=== PATIENT | male | born 1980 | race Caucasian/White ===

== ENCOUNTER 2016-07-02 23:44 | Inpatient (IN) | payer MEDICAID, OTHER ==
[~2016-07-02] VITALS: Ht 172.7 cm; Wt 80.9 kg
[~2016-07-02 23:44] MED LIST: DOXY100C43 PO; DULO60CA61 PO; LITH300T2 PO
[2016-07-02 23:53] VITALS: BP 158/69; PULSE 111; RESP 18; O2SAT 96
[2016-07-03] VITALS (12 sets, daily range): BP systolic 116–148; BP diastolic 58–80; PULSE 63–99; RESP 12–20; O2SAT 95–100
[2016-07-03] MEDS ORDERED: Ammonia Aromatic Inhalant Ampule INHALATION ONE (00:25)
--- NOTE | 2016-07-03 00:28 | ED.REPORT ---
HPI-Altered Mental Status Date of Service Jul 03, 2016 ED Provider: Wu Cuevas MD Patient is a 35 year old male with a history of polysubstance abuse, rhabdomyolysis due to methamphetamine abuse, and muscular dystrophy who was found to be acutely psychotic this evening presents via EMS sedated with respiratory depression after he was given 10mg Versed by EMS enroute. Patient was apparently dropped off by friends on the side of the road this evening and wandered to a nearby house. This was presumed be high on methamphetamine, as he was acutely psychotic. A police deputy arrived at the scene and was able to calm the patient down. However he escalated while being transported to the ED, refusing all care and becoming agitated. He was given 10mg IV Versed. The patient subsequently became sedated and stopped breathing for 10s enroute. However he awoke due to large bumps in the road. Patient arrives to the ED snoring and is unable to provide history. Nursing Notes Stated Complaint: DELIRIUM Chief Complaint: Substance Abuse Nursing Notes Reviewed: Yes Allergies: Coded Allergies: No Known Allergies (Verified Allergy, Unknown, 07/02/16) Scheduled Doxycycline Monohyd (Doxycycline Monohyd) 100 Mg Capsule 100 MG PO BID Duloxetine (Duloxetine) 60 Mg Capsule.dr 60 MG PO HS Wesson Carbonate (Wesson Carbonate) 300 Mg Tablet 300 MG PO DAILY General Time Seen by MD: 23:54 Chief Complaint Agitated Hx Obtained From: EMS Unable to Obtain Hx: Patient condition Arrived By: Ambulance Sudden in Onset?: No Onset Occurred: 1 - 4 hours ago Symptom Duration: Since onset Recent Healthcare: No recent doctor visit, No recent hospitalization Similar Sx Previous: Yes Past Medical History Past Medical History polysubstance abuse - methamphetamine ADHD Uccmxfk-Nyhhk-Mpjjk disease admitted 05/2013 for: Severe hyperthermia, Rhabdomyolysis, Community-acquired pneumonia, and Acute renal failure sepsis due to left lower extremity cellulitis - pt left hospital AMA Past Surgical History Reports: Appendectomy Smoking History Current Every Day Smoker Social History Alcohol Use: Denies alcohol use Drug Use: Cocaine, IV drugs, Meth, THC, Other Other Social History: Local resident Occupation staying with [employer] till 04/06/2015 Ambulatory Status Independent Review of Systems Unable to Obtain ROS Patient condition Physical Exam Initial Vital Signs Vital Signs (First) Date Time Temp Pulse Resp B/P Pulse Ox O2 Delivery O2 Flow Rate FiO2 07/02/16 23:53 37.4 111 18 158/69 96 Room Air 07/03/16 00:00 3 Initial VS: Reviewed, Vital signs abnormal Alertness: Positive: Sedated Distress / Hydration: Positive: Dehydration severe Head / Eyes: Atraumatic, Normocephalic, PERRL (at midposition, small but not pinpoint) Neck: Atraumatic, Supple, No swelling Respiratory / Chest: No rales, No rhonchi, No wheezing Trouble maintaining airway, snoring respirations that respond to head tilt and jaw thrust. Cardiovascular: Regular rhythm, Heart sounds NL Heart Rate / Rhythm: Positive: Tachycardia Mental Status: Positive: Pharmacologically sedated ENT: Airway patent (but has trouble maintaining airway) Abdomen: Soft, Non-tender (not reactive) Skin: Warm, Dry Rash / Lesion Pattern: Negative: Track disla Upper Extremity / MS: Atraumatic, No swelling, No erythema no evidence of cellulitis Lower Extremity / Pelvis / MS: Atraumatic, No swelling, No erythema charcot foot no evidence of cellulitis Interpretation & Diagnostics Interpretation & Diagnostics: Urine Tox Dip: Positive for benzodiazepines, marijuana, methamphetamine, opiates, TCAs, Ecstasy, Amphetamines. Lab Results Interpretation Result Diagram: 07/03/16 0050 07/03/16 0050 Test 07/03/16 00:15 07/03/16 00:50 Urine Color Dark yellow (YELLOW) Urine Appearance Clear (CLEAR,HAZY) Urine pH 6.0 (5.0-8.0) Urine Specific [place] 1.035 (1.003-1.035) Urine Protein 100mg/dL (NEG,TRACE) Urine Glucose (UA) Negativemg/dL (NEGATIVE) Urine Ketones 15mg/dL (NEGATIVE) Urine Occult Blood Large (NEGATIVE) Urine Nitrite Negative (NEGATIVE) Urine Bilirubin Negative (NEGATIVE) Urine Urobilinogen 1.0mg/dL (NORMAL) Urine Leukocyte Esterase Negative (NEGATIVE) Urine RBC 0-2/hpf (0-2) Urine WBC 0-5/hpf (0-5) Urine Epithelial Cells Few/hpf (NONE-MOD) Urine Crystals None seen (NONE SEEN) Urine Bacteria Few/hpf (NONE-FEW) Urine Hyaline Casts 5/20/lpf (NONE) Urine Granular Casts Occasional (NONE SEEN) Urine Waxy Casts None seen (NONE SEEN) Urine Red Blood Cell Casts None seen (NONE SEEN) Urine White Blood Cell Casts None seen (NONE SEEN) Urine Mucus Present (None Seen) Urine Trichomonas None seen (NONE SEEN) Urine Yeast None (NONE SEEN) Urinalysis Comment None Urine Culture Reflexed Not indicated Hold Urine Received (Received) Urine Opiates Screen Positive Urine Methadone Screen Negative Urine Barbiturates Screen Negative Urine Amphetamines Screen Positive Urine Benzodiazepines Screen Positive Urine Cocaine Metabolite Screen Negative Urine Cannabinoids Screen Positive Hold Edward Top Tube Received (Received) Lab Results Interpretation: Markedly elevated CPK Re-Eval/Medical Decision Med Decision/Clinical Course 35-year-old male who uses IV methamphetamine and other drugs. Tonight he became very agitated and required parenteral sedation by the paramedics. He received Versed 10 mg IV. He was quite sedated when he arrived here with periodic apnea lasting up to 30 seconds. He had O2 saturation drops into the high 80s. He required a nasal trumpet airway, oral airway and the jaw thrust maneuver. He remained sedated with obstructive apnea and we were preparing to intubate him when he became more arousable. At times he was alert enough to actually answer questions, at other times he was sedated and apneic. The apnea was overcome with airway positioning and stimulation. Drug screen showed multiple substances to include opiates and amphetamines. He was given Narcan 0.4 mg with more clearing. His labs showed rhabdomyolysis with a CPK level of 11,000. Case was discussed with Dr. Mcmillan the patient will be admitted to her service. She requested that an head CT scan be done, but the patient remained agitated and had constant movement of his extremities so was not possible to shoot the scan. We will attempt to soothe the scan later in a couple hours. It would seem unwise to give him further sedating medications at this time. Source of Hx: Old records Re-Evaluation/Progress #1: Time of Eval: 00:05 Re-Evaluation/Progress Note: Rechecked the patient. He continues to breath during nasal trumpet. Re-Evaluation/Progress #2: Time of Eval: 00:15 Re-Evaluation/Progress Note: Patient stopped breathing again briefly. However this episode was only brief. Re-Evaluation/Progress #3: Time of Eval: 00:20 Re-Evaluation/Progress Note: Patient is now awake in the ED. Remains sedated. Re-Evaluation/Progress #4: Time of Eval: 02:00 Re-Evaluation/Progress Note: Patient is sleeping and remains stable. Re-Evaluation/Progress #5: Time of Eval: 02:36 Re-Evaluation/Progress Note: Patient was given Narcan, since he still remains sedated. The patient is now awake and distressed. Consultation : Referral / Consult Name: Maria D Mcmillan DO Consulted With: Hospitalist Call Returned at: 03:06 Extrusion Line Operator: Will see patient, Agrees with eval, Agrees with plan, Accepts admit Note: Spoke with Dr. Mcmillan, hospitalist, who agrees to accept admit. Counseled Regarding: Diagnosis, Lab results, Need for admission Patient Discharge & Departure Impression: Primary Impression: Rhabdomyolysis Rhabdomyolysis type: non-traumatic Qualified Code: M62.82 - Rhabdomyolysis Additional Impressions: Methamphetamine abuse Heroin abuse Elevated creatine kinase Disposition: ADMITTED TO HOSPITAL Discharge Condition All VS Reviewed: Yes Condition: Stable Crit Care Except Billable Proc Time Spent: 30-74 minutes Services Performed: Patient management by me, Time spent at bedside, Reviewing test results, Reviewing imaging, Discussing patient care, Documentation in record, Time with fam/surrogate Critical Care Notes: Apneic patient requiring airway monitoring and multiple adjunctive airway devices. Polydrug overdose. Scribe Attestation Portions of this note were transcribed by Celi Howe. I, Dr. Cuevas personally performed the history, physical exam and medical decision-making; I reviewed and confirmed the accuracy of the information in the transcribed note. Signed by: Senthil Burns, 07/03/2016 0320 Wu Cuevas MD Jul 03, 2016 00:28 Celi Howe Jul 03, 2016 00:35
[2016-07-03] MEDS ORDERED: 0.9% Sodium Chloride 1,000 ML IV ONE ×2 (00:29→02:25)
[2016-07-03 00:59] LABS: BASOPHILS % (AUTO) 0.4 % (0-3); EOSINOPHILS % (AUTO) 1.4 % (0-5); Mean Corpuscular Hemoglobin 30.2 pg (27.0-35.0); Mean Corpuscular Volume 84.4 fL (81-100); NEUTROPHILS % (AUTO) 75.1 % (40-74); Platelet Count 298 bil/L (150-400)
[2016-07-03] MEDS ORDERED: Sodium Bicarb 8.4% Inj 150 MEQ in Dextrose 5% 1,000 ML IV ONE (03:00)
[2016-07-03] MEDS ORDERED: 0.9% Sodium Chloride 1,000 ML IV SCH (03:31)
[2016-07-03] MEDS ORDERED: Polyethylene Glycol (PEG) 17 Gm Powder PO PRN (03:35)
[2016-07-03] MEDS ORDERED: Ondansetron 2 mg/mL 2 mL Inj IVPUSH PRN (03:35)
[2016-07-03] MEDS ORDERED: Alum-Mag Hydrox-Simeth 30 mL Suspension PO PRN (03:35)
[2016-07-03 03:48] LABS: APPEARANCE,URINE CLEAR (CLEAR,HAZY); COLOR,URINE DARK YELLOW (YELLOW); OCCULT BLOOD,URINE LARGE (NEGATIVE)
[2016-07-03 04:08] LABS: BASOPHILS % (AUTO) 0.5 % (0-3); EOSINOPHILS % (AUTO) 0.9 % (0-5); MONOCYTES % (AUTO) 9.9 % (4-12); Mean Corpuscular Hemoglobin 30.4 pg (27.0-35.0); Mean Corpuscular Volume 85.3 fL (81-100); Platelet Count 278 bil/L (150-400)
--- NOTE | 2016-07-03 05:12 | NUR ---
Admit Pt arrived on unit at apprx 0415 from ED via stretcher with all personal belongings. VSS. Unable to transfer self to bed. Pt poor historian, unable to complete full pt history or med req. Pt refused to allow RN to look at groin or buttocks for skin check. Bed locked, low position. Call light within reach. 1:1 Sitter at bedside. Continuing to monitor.
--- NOTE | 2016-07-03 05:37 | PCM.HPMED ---
Subjective Date of Service Jul 03, 2016 Primary Provider: Admitting Physician: Maria D Mcmillan DO Primary Care Physician: Minda Attending Physician: Maria D Mcmillan DO Admit Status: From the Emergency Department Chief Complaint: altered mental status History of Present Illness: Mr. Aguilar is a 35 y/o man with history of polysubstance abuse, hepatitis C, rhabdomyolysis, leg cellulitis, and Charcot Chula Tooth disease who presented to the emergency department via EMS for acute psychosis. He was dropped off on the side of the road by friends and wandered to a nearby house. There he was found to be acutely psychotic. In route to the hospital, he was given 10 mg IV Versed, which caused the patient to be sedated and stopped breathing for 10 seconds. He awoke due to large bumps in the road. In the emergency department, patient arrived to the ED snoring and was unable to provide history. Urine Tox Dip: Positive for benzodiazepines, marijuana, methamphetamine, opiates, TCAs, Ecstasy, Amphetamines. Patient was given Narcan , since he still remained sedated. The patient was then awake and distressed. He was given 3 L of fluids and sodium bicarbonate. CT scan brain without contrast was ordered. Majority of history obtained from medical records due to patient's mental status. Upon assessment in the ED, he was sleeping but awoke to verbal stimuli. He answered a few questions then intermittently fell back asleep and thrashed in the bed. He knows that he is in a hospital and his name. He reports that he was at a friend's house earlier today. He has not been feeling sick recently. When asked if he took any drugs today, patient did not answer. Review of Systems: Complete review of systems limited due to patient's mental status. Allergies Coded Allergies: No Known Allergies (Verified Allergy, Unknown, 07/02/16) Home Medications Live Aguilar. [id number] 1980 07/27/2015 12:00 PM 03/09 Medications (active prior to today) Medication Name Directions duloxetine 20 mg capsule,delayed release take 1 capsule by oral route 2 times every day gabapentin 300 mg capsule take 1 capsule by oral route 3 times every day Multiple Vitamins tablet take 1 tablet by oral route every day with food neomycin 3.5 mg/g-polymyxin B 10,000 unit/g-dexameth 0.1 % eye oint apply in wound twice a day oxycodone 10 mg tablet take 1 tablet by oral route 6 times every day No more recent medication list available due to patient's mental status. PMH Polysubstance abuse - methamphetamine ADHD Xduriec-Lypzv-Qqjax disease Admitted 05/2013 for: Severe hyperthermia, Rhabdomyolysis, Community-acquired pneumonia, and Acute renal failure Sepsis due to left lower extremity cellulitis - pt left hospital AMA Surgical History Appendectomy Family History Father and brother with Charcot Chula Tooth Social History Hx Alcohol Use: Yes (Distant hx alcoholism) Hx Substance Use: Yes (hx cocaine, meth, heroin) Hx Tobacco Use: Yes Smoking Status: Current Every Day Smoker Exam Vital Signs Vital Sign - Last Date Time Temp Pulse Resp B/P Pulse Ox O2 Delivery O2 Flow Rate FiO2 07/03/16 03:23 95 18 148/70 97 Room Air 07/03/16 01:42 3 07/02/16 23:53 37.4 Intake and Output 07/02/16 07/02/16 07/03/16 Cumulative From/Thru 15:00 23:00 07:00 07/02/16 23:53 - 07/03/16 02:40 Intake Total 2000 ml 2000 ml Balance 2000 ml 2000 ml Intake IV Total 2000 ml 2000 ml Exam General: Thrashing periodically in bed, well-developed, well-nourished HEENT: Normocephalic, atraumatic. External ears without defect. Erythematous sclerae, moist conjunctivae. Dry lips with scabs present on upper and lower lips. Neck: Full range of motion Cardiovascular: Regular rate and rhythm with no murmurs, rubs, or gallops appreciated Pulmonary: Fine rhonchi upper airway but otherwise, clear to auscultation bilaterally with no crackles, wheezes, or rhonchi. Normal respiratory effort with no use of accessory muscles. Abdomen: Bowel tones present. Soft, nontender, nondistended. No hepatosplenomegaly or masses appreciated. Extremities: Charcot foot bilaterally without clubbing, cyanosis, or edema appreciated. Skin: Normal temperature, turgor, and texture; no rash or ulcers appreciated. Neurological: He responds to verbal stimuli. Normal muscle strength, tone, and bulk.Patient moves all 4 extremities equally. He is able to follow commands. Psychiatric: Mild distress. Drowsy and oriented to person and place. Lab and Diagnostics Result Diagram: 07/03/164907/03/1649 Assessment & Plan Mr. Aguilar is a 35 y/o man with history of polysubstance abuse, hepatitis C, rhabdomyolysis, leg cellulitis, and Charcot Chula Tooth disease who presented to the emergency department via EMS for acute psychosis 1. Rhabdomyolysis secondary to methamphetamine use, acute, present on admission. Active. - Differential diagnosis includes but not limited to: drug induced, toxin induced, infection, electrolyte disorder, thyroid dysfunction, or diabetes - CPK 92934, urine protein 100, urine occult blood large, hyaline casts 5/10 - Most likely due to amphetamines and heroin use. Patient is afebrile and no elevated WBC. Blood glucose within normal limits. Mild hypokalemia. - Pt given 3 L of fluids in the ED along with sodium bicarbonate - Continue normal saline at 200 ml/hour - Repeat CPK this afternoon - Blood cultures ordered and pending - Check TSH and phosphorous - Continue to monitor 2. Polysubstance abuse, acute on chronic, present on admission. Active. - Urine Tox Dip: Positive for benzodiazepines, marijuana, methamphetamine, opiates, TCAs, Ecstasy, Amphetamines - Urine tox screen positive for opiates, amphetamines, benzodiazepines, and cannabinoids - It is not clear if benzodiazepines are used chronically. Continue to monitor patient and if appears to be going through benzodiazepine withdrawal, then consider adding CIWA protocol - CT scan brain without contrast ordered - Symptomatic care. - Consider adding clonidine for opioid withdrawal if blood pressure elevates. - Seizure precautions in place - Continue to monitor vital signs 3. Hypernatremia, acute, present on admission. - Mildly elevated at 145 - IV fluids as above - Continue to monitor with BMP this afternoon 4. Hypokalemia, acute, present on admission. - Mildly decreased at 3.2. Magnesium within normal limits. - May increase due to rhabdomyolysis as above - Check phosphorous level - Continue to monitor 5. Normocytic anemia, chronicity unknown, present on admission. - Possibly secondary to hepatitis C infection - Continue to monitor 6. Transaminitis, chronic, present on admission - Probably related to history of hepatitis C - AST 271, ALT 92 - Continue to monitor for symptoms 7. Tobacco use - Nicotine patch if requested Attending Statement The patient was seen and examined together with house staff on 07/03 and I agree with the history, exam and plan as outlined in the note above. Chandrika Aldana DO Jul 03, 2016 03:41 Maria D Mcmillan DO Jul 03, 2016 06:17
--- NOTE | 2016-07-03 12:28 | NUR ---
Evaluation completed. Please go to "Notes" then click on "Assessments and Notes" (bottom left corner of screen). Then select appropriate discipline tab on top of screen.
[2016-07-03 14:26] LABS: Phosphorus 1.5 mg/dL (2.5-4.9)
[2016-07-03 14:38] LABS: Creatine Kinase 5135 U/L (21-232)
--- NOTE | 2016-07-03 15:18 | NUR ---
Social Work: Screening Data: Pt is a 35 y/o male admitted for rabdomyolysis, meth toxicity, opiate/elma. Pt's PCP is not listed, pt's insurance is listed as self pay. EMR reviewed, readmit score not listed. Per H&P, pt has a hx of cocaine, meth, and heroin use and visit reason includes meth toxicity. PLASTER WHITTLER will meet with pt for CD assessment and to discuss self pay status to provide efrain care application. stated in rounds pt likely not ready for d/c for 2-3 days. PLASTER WHITTLER will continue to follow. Assessment: Pt who is independent at baseline, drug use. Plan: Pt will d/c home via POV when medically stable. PLASTER WHITTLER will meet with pt for CD assessment and to discuss self pay status to provide efrain care application. stated in rounds pt likely not ready for d/c for 2-3 days. PLASTER WHITTLER will continue to follow. PELON Fernández
[2016-07-03] MEDS ORDERED: KCl 40 mEq/D5W 500 mL 40 MEQ in IV Premix 1 EACH IV ONE (16:40)
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
[2016-07-03] MEDS ORDERED: Potassium Phos (mEq) Inj 40 MEQ in Dextrose 5% 500 ML IV ONE (17:30)
--- NOTE | 2016-07-03 19:20 | NUR ---
K+/Restless Cardiac: Pt denies CP, K+ found to be low this afternoon, K phos gtt started. Resp: Denies SOB. SPO2 mid 90s on RA. GI/: Denies n/v pt passed swallow eval with speech therapy. Neuro: A&Ox3. Able to follow commands. More alert today, but still poor historian and tangential in speech. Cooperative with care. Sitter pulled this AM. Pt restless at times, but cooperative.
--- NOTE | 2016-07-03 22:30 | NUR ---
pain/anxiety: pt. c/o foot pain, anxious, shaky, resident paged, received order for po vistaril.
[2016-07-03] MEDS: Heparin 5,000 Unit/mL Inj SUBQ SCH (23:51)
[2016-07-04 04:06] VITALS: BP 121/66; PULSE 77; RESP 20; O2SAT 97
[2016-07-04 04:27] LABS: BASOPHILS % (AUTO) 0.3 % (0-3); EOSINOPHILS % (AUTO) 4.5 % (0-5); MONOCYTES % (AUTO) 11.6 % (4-12); Mean Corpuscular Hemoglobin 30.4 pg (27.0-35.0); Mean Corpuscular Volume 87.2 fL (81-100); Platelet Count 297 bil/L (150-400)
[2016-07-04 05:18] LABS: Magnesium 2.1 mg/dL (1.6-2.6); Phosphorus 3.3 mg/dL (2.5-4.9)
[2016-07-04] MEDS: Heparin 5,000 Unit/mL Inj SUBQ SCH ×2 (07:47→16:49)
[2016-07-04 08:30] VITALS: BP 118/71; PULSE 55; RESP 18; O2SAT 97
[2016-07-04 09:15] VITALS: PULSE 63
--- NOTE | 2016-07-04 11:15 | NUR ---
Med Rec Pt. reported he used to take Oxycodone 10 Mg Q4H, PRN, Gabapention 800 mg QID, and Alpha-lipoic acid (for muscle building). He further explained that he had not taken any medications for the last 6 months after his Rx. . He stated he doesn't have any care provider at this point. Primary nurse, Yusra Allen RN aware of the conversation.
[2016-07-04 11:56] VITALS: BP 132/71; PULSE 77; RESP 18; O2SAT 97
--- NOTE | 2016-07-04 14:50 | PCM.PNMED ---
Subjective Date of Service July 04, 2016 Subjective Patient is feeling better today, normal appetite, stooling normally. Very worried about establishing care for muscular dystrophy and for his feet. He was given custom orthotics before leaving care home which are mostly helping, but still allowing two areas of the plantar foot to wear down. He has seen Dr Gonzalez and Dr Wells in the past and was referred down to for a specialist for his muscular dstrophy. He reports this worked well for some time in coordination with Dr Elam in [place], but he was fired from that practice. Exam Vital Signs Vital Sign - Last Date Time Temp Pulse Resp B/P Pulse Ox O2 Delivery O2 Flow Rate FiO2 07/04/16 11:56 36.6 77 18 132/71 97 Room Air 07/03/16 01:42 3 Intake and Output 07/03/16 07/03/16 07/04/16 Cumulative From/Thru 15:00 23:00 07:00 07/02/16 23:53 - 07/04/16 06:00 Intake Total 1180 ml 2866 ml 7046 ml Output Total 1450 ml 2450 ml Balance -270 ml 2866 ml 4596 ml Intake Oral 1180 ml 774 ml 1954 ml IV Total 2092 ml 5092 ml Output Urine Total 1450 ml 2450 ml # Voids 3 3 Exam General: Patient supine in bed. Well-developed, well-nourished. Akathisic which is reportedly baseline. HEENT: Normocephalic, atraumatic. External ears without defect. Dry lips Cardiovascular: Regular rate and rhythm with no murmurs, rubs, or gallops appreciated Pulmonary: Clear to auscultation bilaterally with no crackles, wheezes, or rhonchi. Normal respiratory effort with no use of accessory muscles. Abdomen: Bowel tones present. Soft, nontender, nondistended. Extremities: Charcot foot bilaterally without clubbing, cyanosis, or edema appreciated, breakdown of skin at right first MTP and left fifth MTP. Skin: Normal temperature, turgor, and texture; no rash or ulcers appreciated. Neurological: Grossly neurologically intact. Psychiatric: Alert and oriented to person, place and time. Calm. IVs and Medications Medications Reviewed: Medications were reviewed in detail Lab and Diagnostics Result Diagram: 07/04/16 0415 07/04/16 0415 Assessment & Plan Mr. Aguilar is a 35-year-old man with history of polysubstance abuse, hepatitis C, history of rhabdomyolysis, leg cellulitis, muscular dystrophy and charcot foot presenting with acute psychosis and admitted for rhabdomyolysis. Hospital day # 1. 1. Rhabdomyolysis secondary to methamphetamine use, acute, present on admission. improving. - Differential diagnosis includes but not limited to: drug induced, toxin induced, infection, electrolyte disorder, muscular dystrophy - CPK 13481, urine protein 100, urine occult blood large, hyaline casts 5/10 - Most likely due to amphetamines and heroin use. Patient is afebrile and no elevated WBC. Blood glucose within normal limits. Mild hypokalemia. - Pt given 3 L of fluids in the ED along with sodium bicarbonate - Stop half NS at 150ml/hr due to hypernatremia - CMP and Total CK trending down 2. Polysubstance abuse, acute on chronic. Present on admission. Symptoms improved. - Urine Tox Dip: Positive for benzodiazepines, marijuana, methamphetamine, opiates, TCAs, Ecstasy, Amphetamines - Urine tox screen positive for opiates, amphetamines, benzodiazepines, and cannabinoids - Seizure precautions in place - Social work referral - Continue to follow clinically 3. Hypernatremia, acute, present on admission. Resolved - Continue to follow with CMP 4. Hypokalemia, acute, present on admission. Resolved - Continue to monitor 5. Normocytic anemia, chronicity unknown, present on admission. Improved - Possibly secondary to hepatitis C infection - Continue to monitor 6. Elevated transaminases, chronic, present on admission - Probably related to history of hepatitis C -Trending down - Continue to follow 7. Charcot foot, POA, secondary to muscular dystrophy - help patient establish with PCP so he can get a referral for a muscular dystrophy specialist. 7. Nicotine dependence, chronic. Present on admission - Nicotine patch if requested Disposition: Anticipate discharge home tomorrow. Social work referral for chemical dependence resources and housing issues. He states he is officially disabled for muscular dystrophy since 2011. Pain Evaluation: Adequate Pain Control VTE Prophylaxis: Sub-Q Heparin (Unfractionated) Resuscitation Status: CPR: Attempt Resuscitation Attending Statement The patient was seen and examined together with Dr. Walsh on 07/04/2016 and I agree with the history, exam and plan as outlined in the note above. . Zoran Walsh DO July 04, 2016 14:50 Juan Garcia MD July 04, 2016 16:56
--- NOTE | 2016-07-04 15:24 | NUR ---
Social Work Note: CD Assessment Current Circumstances: SW met with pt at bedside to discuss CD hx and resources per MD request. Pt was positive for cocain, meth and heroin at admission. Hx of Substance Use: Pt denies struggling with substance use at this time to SW. Pt explained that he used heroin prior to admission to help manage his pain. Pt did not engage in further conversation regarding hx of CD use. Hx of tx programs/detox: Pt reports inpt, outpt and NA participation hx. Pt explained that he had a positive experience with [facility] and requested SW contact his prior counselor Farzaneh to notify her of his hospital admission, SW left a voicemail with request to call back. Hx of w/d symptoms: Pt denies any current w/d symptoms at this time. Pt reports experiencing sweats, flu like symptoms and shakes when he does go through withdrawal. Family hx: NA Hx of Sobriety and Supports: Pt cites his family as his primary supports. Pt did not speak on his sobriety as he reports he only recently used substances to manage his pain. Patients perception of the consequences of use: Pt does not seem to be able to reflect his CD use with his decline in health. Pt does not appear to have good insight into his health or situation. Suicide Risk: Pt denies any recent or current suicidal ideation. Pt denies any thoughts of harming himself or other people. Pt accepted Crisis line number if he ever did experience those thoughts or ever felt unsafe. Motivation for tx: Pt denies any current motivation for tx, however did accept resources and did seem interested in reconnecting with his outpt counselor (as mentioned above). Discharge Plan: Anticipated discharge home via POV when medically ready. Pt agreed to [facility] for [facility] PCP follow up. Pt denies any other needs. No other discharge needs identified at this time. SW to continue to follow if any needs arise. PELON Wong
--- NOTE | 2016-07-04 15:41 | NUR ---
Social Work Note: Continued Discharge Planning Data& Assessment: SW met with pt at bedside to check in and discuss discharge planning. CD Assessment completed, documented in separate note. Pt was accepting of resources. Pt agreed to [facility] appointment for [facility]pt PCP follow up, SW requested [facility] appointment be scheduled. SW left voicemail for pt [place] counselor Jing to notify her of pt hospitalization per pt request. SW awaiting call back. Pt denies any other needs. No other discharge needs identified at this time. SW to continue to follow if any needs arise. Plan: Anticipated discharge home via POV when medically ready. Pt denies any other needs. No other discharge needs identified at this time. SW to continue to follow if any needs arise. PELON Wong
--- NOTE | 2016-07-04 19:52 | NUR ---
Suicide/depression/anxiety/support network A discussion was had today. Pt stated he did not feel suicidal or depressed at this time. But he also made remarks like "What could I possibly be depressed about" (regarding his current situation). Pt said he had no intention of suicide and no plan. He stated he hoped his Mother and his daughter would be able to come in for a visit. He also said his half sister and some other friends were planning to come into the unit tonight for a visit. NOC RN aware.
[2016-07-04 19:58] VITALS: BP 145/78; PULSE 66; RESP 20; O2SAT 97
[2016-07-04 23:27] VITALS: BP 131/72; PULSE 60; RESP 20; O2SAT 98
[2016-07-05] MEDS: Heparin 5,000 Unit/mL Inj SUBQ SCH ×2 (00:28→08:18)
[2016-07-05 03:40] VITALS: BP 149/74; PULSE 60; RESP 20; O2SAT 99
--- NOTE | 2016-07-05 06:09 | NUR ---
Withdraw No s/sx of withdraw noted. Pt has no current thoughts of suicide. VSS and pt is no longer on Tele.
[2016-07-05 08:12] VITALS: BP 124/76; PULSE 66; RESP 12; O2SAT 98
--- NOTE | 2016-07-05 10:33 | NUR ---
Scheduled appointment at [facility] for Jul 13 1019 check in for [address]Odonell Niurka SPRAGUEW Addendum: 07/05/16 at 1037 by MARV ABBOTT Scheduled podiatry appointment with Dr Kilpatrick at 4pm , 3:45p check in. Advised DIRECTOR OF RESERVATIONS. Addendum: 07/05/16 at 1143 by MARV ABBOTT Podiatry appointment is tomorrow, July 06.
--- NOTE | 2016-07-05 10:47 | PCM.DIMED ---
Zoran Walsh DO 07/05/16 1047: Discharge Instructions Date of Service July 05, 2016 Dates of Hospitalization Jul 03, 2016 at 03:30 Discharge Diagnosis Discharge Diagnosis Rhabdomyolysis, Polysubstance Abuse, Charcot Foot, Hypernatremia Test Results Laboratory Tests Test 07/05/16 03:50 Sodium Level 141mEq/L (134-144) Potassium Level 3.6mEq/L (3.5-5.2) Chloride Level 104mEq/L (97-108) Carbon Dioxide Level 24mmol/L (18-29) Blood Urea Nitrogen 10mg/dL (6-20) Creatinine 0.52mg/dL (0.76-1.27) Estimat Glomerular Filtration Rate 195mL/min (>59) Glucose Level 111mg/dL (60-99) Calcium Level 9.1mg/dL (8.5-10.1) Total Creatine Kinase 1047U/L (21-232) Microbiology 07/03/16 Blood Culture - Preliminary, Resulted No growth at 2 days; culture examined... Diet No restrictions Activity No restrictions Call your provider Fever or Chills, Shortness of breath, Bleeding, Vomitting, Excessive diarrhea, Weakness (unilateral) Patient Instructions Stay clean, keep your appointments! You can do it. You have an appointment with Dr Kilpatrick in Podiatry on July 06 at 4pm. [facility] can provide primary care and help with your Neurologist in [place] for Muscular Dystrophy. Follow-up Provider: [facility] Follow-up with PCP in: 1 week Juan Garcia MD 07/11/16 0831: Discharge Instructions Attending's Statement The patient was seen and examined together with Dr. Walsh on 07/05/2016 and I agree with the history, exam and plan as outlined in the note above. . Zoran Walsh DO July 05, 2016 10:47 Juan Garcia MD July 11, 2016 08:31
--- NOTE | 2016-07-05 12:25 | NUR ---
Discharge Pt just discharged to home via taxi set up by [employer]. Pt's IV access D/C'd and intact x2. All belongings returned to Pt including his shoes. Pt given discharge educational materials on methamphetamine abuse, narcotic abuse, and muscular dystrophy. Pt instructed to f/u outpatient as outlined in sheet provided by event planner including podiatry appointment tomorrow and f/u with PCP. Right after Pt had left room for main lobby, RN called by [employer] stating that plan changing to attempting to discharge Pt directly to crisis [facility], [employer] updated that Pt walking to lobby for taxi ride, SW verbalized that they would pursue Pt.
--- NOTE | 2016-07-05 13:18 | NUR ---
Social Work Note: Discharge Data& Assessment: EMR reviewed. Per pt is medically ready to discharge. Live Aguilar is a 35 year old male admitted on 07/03/2016 for rabdomyloysis, meth toxicity. Per pt is medically stable for discharge. SW met with pt at bedside to confirm discharge plan. Pt had accepted resources from and consistently denied any suicidal ideation or thoughts of harming himself or others. Pt requested a Medicaid Taxi transportation, which was arranged for pt. Pt Counselor Farzaneh from [facility] ) came to visit pt. Pt Counselor explained that he has a follow up mental health appointment tomorrow 07/06/2016 at 10:00am and CD Assessment appointment with her this Monday. Pt counselor was interested in pt going to [facility] the [facility] until his follow up appointments this week and pt had completed the intake. SW faxed clinicals to [facility] to review pt. However, pt was very focused on discharging home. SW explained that [facility] is reviewing pt and he could wait while we hear back from [facility] about bed availability and if they do not have beds, arrange a taxi for a later time. Pt explained he was anxious to get home and would rather discharge now and follow up with [facility] later this afternoon about bed availability to stay tonight until his appointments tomorrow. SW confirmed that pt had [facility] phone number. Pt has Podiatry appointment tomorrow 07/06/[address] Kilpatrick at 4pm , 3:45p check in. Pt has follow up PCP appointment at [facility] for Jul 13 1019 check in for [address] Sepuvleda. Pt confirmed understanding. [facility] updated that pt would follow up with them this afternoon regarding bed availability. Pt counselor updated. All updated on pt discharge plan. Pt denies any other needs. No other discharge needs identified. Plan: Per pt is medically ready to discharge home via Medicaid Taxi with follow up Mental Health appointment at [facility] tomorrow 07/05/2016 at 10:00am, Podiatry follow up tomorrow at 3:45p.m., CD Assessment follow up Monday at 07/08/2016 at [facility] with his counselor and [facility] PCP appointment 07/12/2016 at 10:20am. Pt plans to follow up with [facility] on his own. Pt previously accepted resources and crisis line information. Pt consistently denied any suicidal ideation. Pt denies any other needs. No other discharge needs identified. PELON Wong
--- NOTE | 2016-07-05 18:51 | PCM.DC.MED ---
Discharge Summary Date of Service July 05, 2016 Dates of Hospitalization Date of Hospital Admission Jul 03, 2016 at 03:30 Date of Discharge: July 05, 2016 Providers: Admitting Physician: Maria D Mcmillan DO Primary Care Physician: Minda Attending Physician: Maria D Mcmillan DO Diagnosis at Time of Discharge Diagnosis at Time of Discharge Rhabdomyolysis, Polysubstance Abuse, Charcot Foot, Hypernatremia Brief History Mr. Aguilar is a 35 y/o man with history of polysubstance abuse, hepatitis C, rhabdomyolysis, leg cellulitis, muscular dystrophy, and Charcot [place] disease who presented to the emergency department via EMS for acute psychosis. He was dropped off on the side of the road by friends and wandered to a nearby house. There he was found to be acutely psychotic. In route to the hospital, he was given 10 mg IV Versed, which caused the patient to be sedated and stopped breathing for 10 seconds. He awoke due to large bumps in the road. In the emergency department, patient arrived to the ED snoring and was unable to provide history. Urine Tox Dip: Positive for benzodiazepines, marijuana, methamphetamine, opiates, TCAs, Ecstasy, Amphetamines. Patient was given Narcan , since he still remained sedated. The patient was then awake and distressed. He was given 3 L of fluids and sodium bicarbonate. CT scan brain without contrast was ordered. Majority of history obtained from medical records due to patient's mental status. Upon assessment in the ED, he was sleeping but awoke to verbal stimuli. He answered a few questions then intermittently fell back asleep and thrashed in the bed. He knows that he is in a hospital and his name. He reports that he was at a friend's house earlier today. He has not been feeling sick recently. When asked if he took any drugs today, patient did not answer. Hospital Course Mr. Aguilar is a 35-year-old man with history of polysubstance abuse, hepatitis C, history of rhabdomyolysis, leg cellulitis, muscular dystrophy and charcot foot presenting with acute psychosis and admitted for rhabdomyolysis. 1. Rhabdomyolysis secondary to methamphetamine use, acute, present on admission. improving. - Differential diagnosis includes but not limited to: drug induced, toxin induced, infection, electrolyte disorder, muscular dystrophy - CPK 84853, urine protein 100, urine occult blood large, hyaline casts 5/10 - Most likely due to amphetamines and heroin use. Patient is afebrile and no elevated WBC. Blood glucose within normal limits. Mild hypokalemia. - Pt given 3 L of fluids in the ED along with sodium bicarbonate - Stop half NS at 150ml/hr due to hypernatremia - CMP and Total CK trending down 2. Polysubstance abuse, acute on chronic. Present on admission. Symptoms improved. - Urine Tox Dip: Positive for benzodiazepines, marijuana, methamphetamine, opiates, TCAs, Ecstasy, Amphetamines - Urine tox screen positive for opiates, amphetamines, benzodiazepines, and cannabinoids - Seizure precautions in place - Social work referral - Continue to follow clinically 3. Hypernatremia, acute, present on admission. Resolved - Continue to follow with CMP 4. Hypokalemia, acute, present on admission. Resolved - Continue to monitor 5. Normocytic anemia, chronicity unknown, present on admission. Improved - Possibly secondary to hepatitis C infection - Continue to monitor 6. Elevated transaminases, chronic, present on admission - Probably related to history of hepatitis C -Trending down - Continue to follow 7. Charcot foot, POA, secondary to muscular dystrophy - help patient establish with PCP so he can get a referral for a muscular dystrophy specialist and to podiatry. 7. Nicotine dependence, chronic. Present on admission - Nicotine patch if requested Disposition: Anticipate discharge home tomorrow. Social work referral for chemical dependence resources and housing issues. He states he is officially disabled for muscular dystrophy since 2011. Exam Vital Signs (Last) Date Time Temp Pulse Resp B/P Pulse Ox O2 Delivery O2 Flow Rate FiO2 07/05/16 08:12 36.5 66 12 124/76 98 Room Air 07/03/16 01:42 3 Test 07/03/16 00:15 07/03/16 00:50 07/03/16 04:15 07/03/16 12:00 Urine Color Dark yellow (YELLOW) Urine Appearance Clear (CLEAR,HAZY) Urine pH 6.0 (5.0-8.0) Urine Specific [place] 1.035 (1.003-1.035) Urine Protein 100mg/dL (NEG,TRACE) Urine Glucose (UA) Negativemg/dL (NEGATIVE) Urine Ketones 15mg/dL (NEGATIVE) Urine Occult Blood Large (NEGATIVE) Urine Nitrite Negative (NEGATIVE) Urine Bilirubin Negative (NEGATIVE) Urine Urobilinogen 1.0mg/dL (NORMAL) Urine Leukocyte Esterase Negative (NEGATIVE) Urine RBC 0-2/hpf (0-2) Urine WBC 0-5/hpf (0-5) Urine Epithelial Cells Few/hpf (NONE-MOD) Urine Crystals None seen (NONE SEEN) Urine Bacteria Few/hpf (NONE-FEW) Urine Hyaline Casts 5/20/lpf (NONE) Urine Granular Casts Occasional (NONE SEEN) Urine Waxy Casts None seen (NONE SEEN) Urine Red Blood Cell Casts None seen (NONE SEEN) Urine White Blood Cell Casts None seen (NONE SEEN) Urine Mucus Present (None Seen) Urine Trichomonas None seen (NONE SEEN) Urine Yeast None (NONE SEEN) Urinalysis Comment None Urine Culture Reflexed Not indicated Hold Urine Received (Received) Urine Opiates Screen Positive Urine Methadone Screen Negative Urine Barbiturates Screen Negative Urine Amphetamines Screen Positive Urine Benzodiazepines Screen Positive Urine Cocaine Metabolite Screen Negative Urine Cannabinoids Screen Positive Lactic Acid Level 1.1mmol/L (0.4-2.0) Hold Edward Top Tube Received (Received) Thyroid Stimulating Hormone (TSH) 0.601uIU/mL (0.450-4.500) Test 07/04/16 04:15 07/05/16 03:50 White Blood Count 5.8th/mm3 (3.8-10.1) Red Blood Count 4.15mil/mm3 (4.40-5.80) Hemoglobin 12.6g/dL (13.8-17.2) Hematocrit 36.2% (41.0-50.0) Mean Corpuscular Volume 87.2fL (81-100) Mean Corpuscular Hemoglobin 30.4pg (27.0-35.0) Mean Corpuscular Hemoglobin Concent 34.8% (32.0-37.0) Red Cell Distribution Width 12.8% (12.3-15.4) Platelet Count 297bil/L (150-400) Neutrophils (%) (Auto) 48.0% (40-74) Lymphocytes (%) (Auto) 35.4% (14-46) Monocytes (%) (Auto) 11.6% (4-12) Eosinophils (%) (Auto) 4.5% (0-5) Basophils (%) (Auto) 0.3% (0-3) Phosphorus Level 3.3mg/dL (2.5-4.9) Magnesium Level 2.1mg/dL (1.6-2.6) Total Bilirubin 0.3mg/dL (0.0-1.2) Aspartate Amino Transf (AST/SGOT) 139U/L (0-50) Alanine Aminotransferase (ALT/SGPT) 81U/L (0-44) Alkaline Phosphatase 60U/L (25-150) Total Protein 5.6g/dL (6.4-8.4) Albumin 3.6g/dL (3.4-5.0) Sodium Level 141mEq/L (134-144) Potassium Level 3.6mEq/L (3.5-5.2) Chloride Level 104mEq/L (97-108) Carbon Dioxide Level 24mmol/L (18-29) Blood Urea Nitrogen 10mg/dL (6-20) Creatinine 0.52mg/dL (0.76-1.27) Estimat Glomerular Filtration Rate 195mL/min (>59) Glucose Level 111mg/dL (60-99) Calcium Level 9.1mg/dL (8.5-10.1) Total Creatine Kinase 1047U/L (21-232) Discharge Medications No Active Prescriptions or Reported Meds Followup Plan Discharge Diet: No restrictions Discharge Activity: No restrictions Patient Instructions Stay clean, keep your appointments! You can do it. You have an appointment with Dr Kilpatrick in Podiatry on July 06 at 4pm. [facility] can provide primary care and help with your Neurologist in [place] for Muscular Dystrophy. Follow-up Provider: [facility] Follow-up with PCP in: 1 week Time spent Greater than 30 minutes was spent in preparation of discharge with greater than 50% of that time dedicated to patient counseling and coordination of care. . Attending Statement The patient was seen and examined together with Dr. Walsh on 07/05/2016 and I agree with the history, exam and plan as outlined in the note above. . Zoran Walsh DO July 05, 2016 18:50 Juan Garcia MD July 11, 2016 08:31
== END 2016-07-05 12:39 | disposition home or self-care (01) | DRG 558 ==
LOC: SED 23:44 → PCC 07-03 03:30
PROVIDERS: ADMIT Internal Medicine; ATTEND Internal Medicine
DX: M62.82 Rhabdomyolysis (principal); E87.0 Hyperosmolality and hypernatremia; F19.10 Other psychoactive substance abuse, uncomplicated; B19.20 Unspecified viral hepatitis C without hepatic coma; G60.0 Hereditary motor and sensory neuropathy; F17.210 Nicotine dependence, cigarettes, uncomplicated; E87.6 Hypokalemia; F15.188 Other stimulant abuse with other stimulant-induced disorder

== ENCOUNTER 2016-09-05 06:04 | Inpatient (IN) | payer OTHER, MEDICAID ==
[2016-09-05] VITALS (9 sets, daily range): BP systolic 96–132; BP diastolic 63–83; PULSE 65–84; RESP 11–28; O2SAT 94–100
--- NOTE | 2016-09-05 06:11 | ED.REPORT ---
HPI-Overdose/Alcohol Toxicity Date of Service Sep 05, 2016 ED Provider: Nathaniel Parmar MD Patient is a 35 year old male with a known hx of polysubstance abuse including heroin use who presents to the ED via EMS s/p a heroin overdose. Per a friend on the scene, he became unconscious while in the passenger side of his friend's vehicle after using heroin this morning. He was given .5 mg of Narcan en route and arrived to the department unconscious and on 15L of oxygen with a non- rebreather with an O2 sat in the high 90's. Nursing Notes Stated Complaint: HEROIN OVERDOSE Chief Complaint: Substance Abuse Nursing Notes Reviewed: Yes Allergies: Coded Allergies: No Known Allergies (Verified Allergy, Unknown, 07/02/16) No Active Prescriptions or Reported Meds General Time Seen by Provider: 06:03 Chief Complaint Drug overdose Hx Obtained From: EMS Arrived By: Ambulance Onset Occurred: Just prior to arrival Recent Healthcare: Recent hospitalization Risk-Overdose/Alcohol Tox )( Suicide Risk Stratification : Substance abuse RF Statements: Risk factors reviewed Past Medical History Past Medical History polysubstance abuse - methamphetamine ADHD Njlxvuw-Rtuks-Mqvxu disease admitted 05/2013 for: Severe hyperthermia, Rhabdomyolysis, Community-acquired pneumonia, and Acute renal failure sepsis due to left lower extremity cellulitis - pt left hospital AMA Past Surgical History Reports: Appendectomy Smoking History Current Every Day Smoker Social History EtOH abuse Alcohol Use: Denies alcohol use Drug Use: Cocaine, IV drugs, Meth, THC, Other Other Social History: Local resident Occupation staying with [employer] till 04/06/2015 Ambulatory Status Independent Review of Systems Unable to Obtain ROS Patient condition Physical Exam Initial Vital Signs Vital Signs (First) Date Time Temp Pulse Resp B/P Pulse Ox O2 Delivery O2 Flow Rate FiO2 09/05/16 06:07 36.8 75 18 104/74 100 Non-Rebreather 09/05/16 06:28 10 Initial VS: Reviewed, Vital signs normal Extremities: Vascular intact, Neuro intact Alertness: Positive: Responds to pain stimuli, Somnolent Respiratory / Chest: Atraumatic, Breath sounds = bilat On 15L non-rebreather with O2 sat in high 90's bradypnic Cardiovascular: Heart rate NL, Regular rhythm, Heart sounds NL Abdomen: Atraumatic Mental Status: Positive: Somnolent Moves all 4 extremities Unable to Evaluate: Positive: Unresponsive Head / Eyes: Atraumatic, Normocephalic No obvious signs of trauma Skin: Warm, Dry Track disla on bilat upper extremities Interpretation & Diagnostics Lab Results Interpretation Result Diagram: 09/05/16 0650 09/05/16 0650 Test 09/05/16 06:50 09/05/16 07:17 White Blood Count 14.3th/mm3 (3.8-10.1) Red Blood Count 4.61mil/mm3 (4.40-5.80) Hemoglobin 13.4g/dL (13.8-17.2) Hematocrit 39.7% (41.0-50.0) Mean Corpuscular Volume 86.1fL (81-100) Mean Corpuscular Hemoglobin 29.1pg (27.0-35.0) Mean Corpuscular Hemoglobin Concent 33.8% (32.0-37.0) Red Cell Distribution Width 13.1% (12.3-15.4) Platelet Count 378bil/L (150-400) Neutrophils (%) (Auto) 73.4% (40-74) Lymphocytes (%) (Auto) 14.6% (14-46) Monocytes (%) (Auto) 10.2% (4-12) Eosinophils (%) (Auto) 0.8% (0-5) Basophils (%) (Auto) 0.3% (0-3) Sodium Level 138mEq/L (134-144) Potassium Level 3.9mEq/L (3.5-5.2) Chloride Level 101mEq/L (97-108) Carbon Dioxide Level 22mmol/L (18-29) Blood Urea Nitrogen 11mg/dL (6-20) Creatinine 0.52mg/dL (0.76-1.27) Estimat Glomerular Filtration Rate 195mL/min (>59) Glucose Level 90mg/dL (60-99) Calcium Level 9.2mg/dL (8.5-10.1) Total Bilirubin 0.8mg/dL (0.0-1.2) Aspartate Amino Transf (AST/SGOT) 25U/L (0-50) Alanine Aminotransferase (ALT/SGPT) 14U/L (0-44) Alkaline Phosphatase 63U/L (25-150) Total Creatine Kinase 279U/L (21-232) Total Protein 7.3g/dL (6.4-8.4) Albumin 4.1g/dL (3.4-5.0) Alcohols < 10mg/dL (0-10) Hold Urine Received (Received) Lab Results Interpretation: Urine tox postive for Methamphetamine, marijuana, and opiates. ECG Interpretation ECG Interpretation: Sinus rate 64 Normal axis and interval ST elevation consistent with J point elevation No prior for comparison Time: 06:17 Interpreted by: ED physician X-Ray Chest Interpretation Chest Xray Interpretation: no pneumonia, focal consolidation, or pneumothorax View: Portable, 1 view Interpretation / Wet Read by: Interpret - Radiologist Re-Eval/Medical Decision Med Decision/Clinical Course In summary, the patient is a 35-year-old male with known history of polysubstance abuse including methamphetamine and heroin who is brought to the emergency department by EMS after becoming unresponsive in a friend's car after using IV heroin. Upon arrival by EMS he was found to be obtunded and with minimal respiratory effort. He was bagged, placed on 15 L by nonrebreather and 0.4 mg of intramuscular Narcan were administered with minimal effect. He comes into the department still very somnolent requiring 15 L of oxygen with stable vital signs and saturation in the high 90s though he is bradypnic. There are no signs of head trauma and he has no lateralizing neurologic findings. We administered one vial of Narcan intranasally and after IV access was obtained read Mr. 0.4 mg IV. Thereafter the patient became awake, protected his airway and no longer needed supplemental oxygen. He was monitored closely here in the emergency department and was noted by history somewhat agitated kicking and thrashing. He was placed in behavioral restraints. EKG: Sinus rate 64 Normal axis and interval ST elevation consistent with J point elevation No prior for comparison Patient was initially treated with IV fluids and Zofran. Urine tox postive for Methamphetamine, marijuana, and opiates. Labs notable as below: Leukocytosis 13.4 CBC otherwise unremarkable CMP unremarkable CK 279 Alcohol negative Chest x-ray demonstrated no focal consolidation or pneumothorax. Pt was monitored here in the emergency department for approximately 4 hours during which time he developed recurrent respiratory depression and extreme somnolence. Therefore, given his requirement for large doses of Narcan he was placed on a continuous Narcan infusion. While he does have a leukocytosis. No evidence of acute infectious process. Patient was discussed with the accepting hospitalist and admitted to the ICU for further management of his opiate overdose with continuous Narcan infusion. Re-Evaluation/Progress : Time of Eval: 09:34 Re-Evaluation/Progress Note: Rechecked pt. He is sleeping soundly and snoring. Consultation : Referral / Consult Name: Jey Elam MD Consulted With: Hospitalist Call Returned at: 11:11 Pharmacist In Charge Owner: Will see patient, Agrees with eval, Agrees with plan, Accepts admit Note: Discussed pt's case. Accepts admit. Counseled Regarding: Diagnosis, Need for admission Discharge & Departure Impression: Primary Impression: Heroin overdose Encounter type: initial encounter Injury intent: accidental or unintentional Qualified Code: T40.1X1A - Poisoning by heroin, accidental ( unintentional), initial encounter Additional Impressions: Hypoxia Respiratory failure Chronicity: acute Respiratory failure complication: hypoxia Qualified Code : J96.01 - Acute respiratory failure with hypoxia Agitation Polysubstance abuse )( Condition at Discharge: No danger to self Disposition: ADMITTED TO HOSPITAL Discharge Condition All VS Reviewed: Yes Condition: Improved Referrals: NOPCP (PCP) Crit Care Except Billable Proc Time Spent: 135-164 minutes Services Performed: Patient management by me, Time spent at bedside, Reviewing test results, Reviewing imaging, Discussing patient care, Documentation in record, Time with fam/surrogate Scribe Attestation Portions of this note were transcribed by Calvin Gomez. I, Dr. Parmar personally performed the history, physical exam and medical decision-making; I reviewed and confirmed the accuracy of the information in the transcribed note. Signed by: Calvin Gomez 09/05/16, 1113 Nathaniel Parmar MD Sep 05, 2016 06:11 CALVIN GOMEZ Sep 05, 2016 06:20 Nathaniel Parmar MD Sep 05, 2016 06:11 CALVIN GOMEZ Sep 05, 2016 06:20
[2016-09-05] MEDS ORDERED: Ondansetron 2 mg/mL 2 mL Inj IVPUSH ONE (06:15)
[2016-09-05] MEDS ORDERED: 0.9% Sodium Chloride 1,000 ML IV ONE (06:15)
[2016-09-05 07:04] LABS: BASOPHILS % (AUTO) 0.3 % (0-3); EOSINOPHILS % (AUTO) 0.8 % (0-5); MONOCYTES % (AUTO) 10.2 % (4-12); Mean Corpuscular Hemoglobin 29.1 pg (27.0-35.0); Mean Corpuscular Volume 86.1 fL (81-100); NEUTROPHILS % (AUTO) 73.4 % (40-74); Platelet Count 378 bil/L (150-400)
[2016-09-05] MEDS ORDERED: _Naloxone 2 mg/2 mL 2 Syringe Kit (NASAL USE) NASAL PRN (09:05)
--- NOTE | 2016-09-05 09:52 | DRSVH ---
PROCEDURE: X-RAY CHEST ONE VIEW ([id number]) INDICATIONS: hypoxia, aspiration? TECHNIQUE: One view of the chest was acquired. COMPARISON: [facility], CR, CHEST 1VW (PORTABLE), 05/08/2013, 5:23. FINDINGS: Surgical changes and devices: None. Lungs and pleura: No pleural effusions or pneumothorax. Lungs are clear without consolidation. Mediastinum: Mediastinal contours appear normal. Heart size is normal. Bones and chest wall: No suspicious bony lesions. Overlying soft tissues appear unremarkable. IMPRESSION: 1. No definite evidence of consolidation or aspiration. Dictated by: Ilan Whitney M.D. on 09/05/2016 at 9:49 Approved by: Ilan Whitney M.D. on 09/05/2016 at 9:50
[2016-09-05] MEDS ORDERED: Alum-Mag Hydrox-Simeth 30 mL Suspension PO PRN ×2 (10:50→13:10)
[2016-09-05] MEDS ORDERED: Naloxone Inj 2 MG in 0.9% Sodium Chloride 500 ML IV PRN (10:50)
[2016-09-05] MEDS ORDERED: Ondansetron 2 mg/mL 2 mL Inj IVPUSH PRN ×2 (10:50→13:10)
[2016-09-05] MEDS ORDERED: Senna-Docusate 8.6-50 mg Tablet PO PRN (13:10)
[2016-09-05] MEDS ORDERED: Polyethylene Glycol (PEG) 17 Gm Powder PO PRN (13:10)
--- NOTE | 2016-09-05 13:10 | NUR ---
Patient left AMA Narcan drip was turned off per pt's request, after 20 minutes pt jumped out of bed and ripped off monitors and ripped out his IV and walked out. Refused to sign AMA paperwork or stay for monitoring. Pt A&O x3
--- NOTE | 2016-09-05 15:41 | PCM.HPMED ---
Subjective Date of Service Sep 05, 2016 Primary Provider: Admitting Physician: Jey Elam MD Primary Care Physician: Nopsunita Attending Physician: Jey Elam MD Admit Status: From the Emergency Department, 23-Hour Observation, Critical Care Chief Complaint: Heroin overdose History of Present Illness: This is a 35-year-old male with history of opiate dependence disorder who presented to the ER after heroin overdose. The patient was very sedated then received Narcan. He also was refractory with recurrent somnolence and acute respiratory failure with hypoxia. The patient was started on Narcan drip. The patient is transported to the second floor, critical care. There he was arousable but really still very sedated and answer very few questions. He did note using her one is a new thing for the past several weeks because it is hard for him to get his pain medicine for his chronic foot and leg pain. He denied doing any other details relating to his overdose or how often he uses heroin. Review of Systems: He declined to participate in review of systems Allergies Coded Allergies: No Known Allergies (Verified Allergy, Unknown, 07/02/16) Home Medications He declined to answer her usual medications PMH polysubstance abuse - methamphetamine and heroin ADHD Qtylwmm-Nzxpm-Tszbn disease Surgical History Appendectomy Family History Declines to answer Social History Hx Alcohol Use: Yes (Distant hx alcoholism) Hx Substance Use: Yes (hx cocaine, meth, heroin) Hx Tobacco Use: Yes Smoking Status: Current Every Day Smoker Living Arrangement: Alone Exam Vital Signs Vital Sign - Last Date Time Temp Pulse Resp B/P Pulse Ox O2 Delivery O2 Flow Rate FiO2 09/05/16 12:35 65 11 114/63 100 Room Air 09/05/16 12:24 36.9 10 Intake and Output 09/04/16 09/04/16 09/05/16 Cumulative From/Thru 15:00 23:00 07:00 09/05/16 06:07 - 09/05/16 06:58 Intake Total 1000 ml 1000 ml Balance 1000 ml 1000 ml Intake IV Total 1000 ml 1000 ml Exam Somnolent but arousable No distress. Slow and slurred speech. flat affect. Normal skull. Normal nose and ears. Anicteric sclera, symmetric pupils Oropharynx is unremarkable, no facial droop. Neck is supple, normal thyroid. No adenopathy. Lungs are clear, normal effort rate. Heart is regular without murmur gallop or rub. Abdomen soft, nondistended or tender. Extremities are free of pedal edema. Good radial and pedal pulses. Skin is free of rash, lesions. No petechiae or ecchymosis. Joints are grossly normal. Cranial nerves are grossly normal. Motor strength is normal in all extremities. Normal muscular tone. He has multiple tattoos His hands are somewhat unkempt. Her His right foot is somewhat red and swollen but not fluctuant. Good pulse. He does have multiple track disla on his dorsal aspect of hands bilaterally. Lab and Diagnostics Result Diagram: 09/05/16 0650 09/05/16 0650 X-Rays, CTs and MRIs Chest x-ray unremarkable Assessment & Plan Acute hypoxic respiratory failure, by mouth and stable. The plan is to maintain a Narcan drip and then wean off as able. Heroin overdose, POA. The plan is to maintain a Narcan drip more awake and then wean off as able. Probable right foot cellulitis, POA. The plan is ceftriaxone 1 g IV every 24 hours consider imaging if it fails to improve. [place] tooth, POA. Follow clinically. The patient is full resuscitation. Observation status, anticipate one night length of stay. Pain Evaluation: Adequate Pain Control Resuscitation Status: CPR: Attempt Resuscitation Time spent 40 minutes Jey Elam MD Sep 05, 2016 15:41
[2016-09-05] MEDS ORDERED: Heparin 5,000 Unit/mL Inj SUBQ SCH (20:30)
--- NOTE | 2016-09-06 13:39 | PCM.DC.MED ---
Discharge Summary Date of Service Sep 05, 2016 Dates of Hospitalization Date of Hospital Admission Sep 05, 2016 at 11:36 Date of Discharge: Sep 05, 2016 Providers: Admitting Physician: Jey Elam MD Primary Care Physician: Nopsunita Attending Physician: Jey Elam MD Diagnosis at Time of Discharge Diagnosis at Time of Discharge 1. Adjust medical advice discharge. 2. Heroin overdose. 3. Acute respiratory failure, with hypoxia. 4. Heroin addiction. 5. Probable left foot cellulitis. Procedures XRay, CTs & MRIs Chest x-ray unremarkable Brief History This is a 35-year-old male with history of opiate dependence disorder who presented to the ER after heroin overdose. The patient was very sedated then received Narcan. He also was refractory with recurrent somnolence and acute respiratory failure with hypoxia. The patient was started on Narcan drip. The patient is transported to the second floor, critical care. There he was arousable but really still very sedated and answer very few questions. He did note using her one is a new thing for the past several weeks because it is hard for him to get his pain medicine for his chronic foot and leg pain. He denied doing any other details relating to his overdose or how often he uses heroin. Hospital Course Acute hypoxic respiratory failure, by mouth and stable. The plan is to maintain a Narcan drip and then wean off as able. Heroin overdose, POA. The plan is to maintain a Narcan drip more awake and then wean off as able. Probable right foot cellulitis, POA. The plan is ceftriaxone 1 g IV every 24 hours consider imaging if it fails to improve. [place] tooth, POA. Follow clinically. The patient is full resuscitation. Hospital course. The patient was admitted on Narcan drip to the CCU. He improved rapidly and as soon as he was less somnolent and sedated he insisted on leaving against medical front desk coordinator. He received no formal treatment for cellulitis because it was AGAINST MEDICAL ADVICE discharge. Exam Vital Signs (Last) Date Time Temp Pulse Resp B/P Pulse Ox O2 Delivery O2 Flow Rate FiO2 09/05/16 12:35 65 11 114/63 100 Room Air 09/05/16 12:24 36.9 10 Exam Patient was seen and examined on the day of discharge. Test 09/05/16 06:50 09/05/16 07:17 White Blood Count 14.3th/mm3 (3.8-10.1) Red Blood Count 4.61mil/mm3 (4.40-5.80) Hemoglobin 13.4g/dL (13.8-17.2) Hematocrit 39.7% (41.0-50.0) Mean Corpuscular Volume 86.1fL (81-100) Mean Corpuscular Hemoglobin 29.1pg (27.0-35.0) Mean Corpuscular Hemoglobin Concent 33.8% (32.0-37.0) Red Cell Distribution Width 13.1% (12.3-15.4) Platelet Count 378bil/L (150-400) Neutrophils (%) (Auto) 73.4% (40-74) Lymphocytes (%) (Auto) 14.6% (14-46) Monocytes (%) (Auto) 10.2% (4-12) Eosinophils (%) (Auto) 0.8% (0-5) Basophils (%) (Auto) 0.3% (0-3) Sodium Level 138mEq/L (134-144) Potassium Level 3.9mEq/L (3.5-5.2) Chloride Level 101mEq/L (97-108) Carbon Dioxide Level 22mmol/L (18-29) Blood Urea Nitrogen 11mg/dL (6-20) Creatinine 0.52mg/dL (0.76-1.27) Estimat Glomerular Filtration Rate 195mL/min (>59) Glucose Level 90mg/dL (60-99) Calcium Level 9.2mg/dL (8.5-10.1) Total Bilirubin 0.8mg/dL (0.0-1.2) Aspartate Amino Transf (AST/SGOT) 25U/L (0-50) Alanine Aminotransferase (ALT/SGPT) 14U/L (0-44) Alkaline Phosphatase 63U/L (25-150) Total Creatine Kinase 279U/L (21-232) Total Protein 7.3g/dL (6.4-8.4) Albumin 4.1g/dL (3.4-5.0) Alcohols < 10mg/dL (0-10) Hold Urine Received (Received) Discharge Medications No Active Prescriptions or Reported Meds Followup Plan Disposition: AMA, unknown Time spent 30 minutes Jey Elam MD Sep 06, 2016 13:39
== END 2016-09-05 13:10 | disposition left against medical advice (07) | DRG 917 ==
LOC: SED 06:04 → CCU 11:36
PROVIDERS: ADMIT Hospitalist; ATTEND Hospitalist
DX: T40.1X1A Poisoning by heroin, accidental (unintentional), initial encounter (principal); J96.01 Acute respiratory failure with hypoxia; L03.115 Cellulitis of right lower limb; Y92.9 Unspecified place or not applicable; F11.229 Opioid dependence with intoxication, unspecified; F17.210 Nicotine dependence, cigarettes, uncomplicated; G60.0 Hereditary motor and sensory neuropathy; Z91.19 Patient's noncompliance with other medical treatment and regimen

== ENCOUNTER 2016-11-09 07:10 | Inpatient (IN) | payer OTHER, MEDICAID ==
[~2016-11-09] VITALS: Ht 177.8 cm; Wt 77.3 kg
[2016-11-09] VITALS (7 sets, daily range): BP systolic 122–152; BP diastolic 66–111; PULSE 60–96; RESP 10–20; O2SAT 98–100
--- NOTE | 2016-11-09 07:39 | ED.REPORT ---
HPI-Extremity Problem Lower Date of Service Nov 09, 2016 ED Provider: Miguel Brown MD Patient is a 35 year old male with a history of IV drug use who presents to the ED complaining of left foot pain onset a week ago. Associated symptoms include redness near the 5th toe. He reports that he thinks it from rubbing on his shoe after his friend "was shaving it" but did not answer if he injected into the area. The patient states that he last used earlier today. Patient is a poor historian. Nursing Notes Stated Complaint: LEFT FOOT PAIN Chief Complaint: Skin Rash/Abscess Nursing Notes Reviewed: Yes Allergies: Coded Allergies: No Known Allergies (Verified Allergy, Unknown, 07/02/16) No Active Prescriptions or Reported Meds General Time Seen by MD: 07:29 Chief Complaint Foot injury left Hx Obtained From: Patient Arrived By: Walk-in Onset Occurred: 1 week ago Symptom Duration: Since onset Location: : Foot left Quality: Painful Severity: Current: Moderate Recent Healthcare: Recent doctor visit, Recent hospitalization Similar Sx Previous: Yes Past Medical History Past Medical History polysubstance abuse - methamphetamine ADHD Aekxnuq-Gqetp-Igimi disease admitted 05/2013 for: Severe hyperthermia, Rhabdomyolysis, Community-acquired pneumonia, and Acute renal failure sepsis due to left lower extremity cellulitis - pt left hospital AMA Past Surgical History Reports: Appendectomy Smoking History Current Every Day Smoker Social History EtOH abuse Alcohol Use: Denies alcohol use Drug Use: Cocaine, IV drugs, Meth, THC, Other Other Social History: Local resident Occupation staying with [employer] till 04/06/2015 Ambulatory Status Independent Review of Systems Musculoskeletal: Reports: Extremity pain, Extremity swelling Skin: Denies Itching, Denies Rash Complete sys rev & neg: except as marked. Physical Exam Initial Vital Signs Vital Signs (First) Date Time Temp Pulse Resp B/P Pulse Ox O2 Delivery O2 Flow Rate FiO2 11/09/16 07:16 37.5 96 18 140/111 98 Room Air Initial VS: Reviewed streaking lymphangitis up the left leg diffuse erythema over the left foot 1cm x 1cm fluid collection at the base of the left 5th metatarsal 1cm x1cm ulceration of the plantar aspect of the left base of the 5th metatarsal Alertness: Positive: Somnolent patient nods off during conversation Respiratory / Chest: Atraumatic, Breath sounds NL, Breath sounds = bilat, No respiratory distress Cardiovascular: Heart rate NL, Regular rhythm, Heart sounds NL, No murmurs Skin: Warm, Dry slurred speech Head / Eyes: Atraumatic, Normocephalic, PERRL, EOMI Abdomen: Atraumatic, Soft, Non-tender Interpretation & Diagnostics Lab Results Interpretation Result Diagram: 11/09/16 0735 11/09/16 0735 Test 11/09/16 07:35 11/09/16 07:50 White Blood Count 25.1th/mm3 (3.8-10.1) Red Blood Count 4.20mil/mm3 (4.40-5.80) Hemoglobin 11.9g/dL (13.8-17.2) Hematocrit 35.2% (41.0-50.0) Mean Corpuscular Volume 83.8fL (81-100) Mean Corpuscular Hemoglobin 28.3pg (27.0-35.0) Mean Corpuscular Hemoglobin Concent 33.8% (32.0-37.0) Red Cell Distribution Width 13.2% (12.3-15.4) Platelet Count 397bil/L (150-400) Neutrophils (%) (Auto) 82.5% (40-74) Lymphocytes (%) (Auto) 9.7% (14-46) Monocytes (%) (Auto) 6.5% (4-12) Eosinophils (%) (Auto) 0.6% (0-5) Basophils (%) (Auto) 0.2% (0-3) Sodium Level 139mEq/L (134-144) Potassium Level 4.1mEq/L (3.5-5.2) Chloride Level 101mEq/L (97-108) Carbon Dioxide Level 23mmol/L (18-29) Blood Urea Nitrogen 13mg/dL (6-20) Creatinine 0.64mg/dL (0.76-1.27) Estimat Glomerular Filtration Rate 153mL/min (>59) Glucose Level 121mg/dL (60-99) Lactic Acid Level 1.3mmol/L (0.4-2.0) Calcium Level 8.6mg/dL (8.5-10.1) Magnesium Level 1.8mg/dL (1.6-2.6) Total Bilirubin 0.4mg/dL (0.0-1.2) Aspartate Amino Transf (AST/SGOT) 21U/L (0-50) Alanine Aminotransferase (ALT/SGPT) 19U/L (0-44) Alkaline Phosphatase 88U/L (25-150) Total Protein 6.7g/dL (6.4-8.4) Albumin 3.9g/dL (3.4-5.0) Procalcitonin 0.17ng/mL (0.00-0.08) Erythrocyte Sedimentation Rate 30mm/hr (0-15) X-Ray Interpretation Xray Interpretation: IMPRESSION: Small fifth metatarsal erosion concerning for osteomyelitis. Dictated by: Radha Collins MD, PhD on 11/09/2016 at 8:23 Approved by: Radha Collins MD, PhD on 11/09/2016 at 8:25 X-Ray Ordered: Foot left Interpretation / Wet Read by: Interpret - Radiologist Re-Eval/Medical Decision Med Decision/Clinical Course 35-year-old male with left foot cellulitis and osteomyelitis of left fifth metatarsal and abscess. Admitted to hospital. Nothing by mouth. Podiatry to see today possible OR today. Vancomycin and Zosyn given after blood cultures. Re-Evaluation/Progress : Time of Eval: 08:19 Re-Evaluation/Progress Note: Discussed results and plan for admit. Patient understands and agrees to plan. All questions were addressed. Consultation #1: Referral / Consult Name: Tamara Johnston DPM Consulted With: On-call physician (podiatry) Call Returned at: 08:27 Learning Consultant: Will see patient, Agrees with eval, Agrees with plan Consultation #2: Referral / Consult Name: Yael Flaherty DO Consulted With: Hospitalist Call Returned at: 09:38 Learning Consultant: Agrees with eval, Agrees with plan, Accepts admit Counseled Regarding: Diagnosis, Lab results, Need for admission Discharge & Departure Impression: Primary Impression: Foot osteomyelitis, left Osteomyelitis type: unspecified type Qualified Code: M86.9 - Osteomyelitis, unspecified Disposition: ADMITTED TO HOSPITAL Discharge Condition All VS Reviewed: Yes Condition: Stable Referrals: NOPCP (PCP) Scribe Attestation Portions of this note were transcribed by Shawna Rowan. I, Dr. Brown personally performed the history, physical exam and medical decision-making; I reviewed and confirmed the accuracy of the information in the transcribed note. Signed by: Senthil Ledezma, 11/09/16 Miguel Brown MD Nov 09, 2016 07:39 Amy Rowan Nov 09, 2016 08:20
[2016-11-09 07:51] LABS: BASOPHILS % (AUTO) 0.2 % (0-3); EOSINOPHILS % (AUTO) 0.6 % (0-5); MONOCYTES % (AUTO) 6.5 % (4-12); Mean Corpuscular Hemoglobin 28.3 pg (27.0-35.0); Mean Corpuscular Volume 83.8 fL (81-100); NEUTROPHILS % (AUTO) 82.5 % (40-74); Platelet Count 397 bil/L (150-400)
[2016-11-09 08:14] LABS: Magnesium 1.8 mg/dL (1.6-2.6)
[2016-11-09] MEDS ORDERED: Piperacillin-Tazo 3.375 Gm Inj 3.375 GM in Dextrose 5% Minibag Plus 50 ML IV ONE (08:15)
[2016-11-09] MEDS ORDERED: Vancomycin Dose per Pharmacist XX ONE (08:15)
--- NOTE | 2016-11-09 08:26 | DRSVH ---
PROCEDURE: X-RAY LEFT FOOT COMPLETE, MINIMUM THREE VIEWS ([id number]) INDICATIONS: swollen, hole on bottom of foot, painful TECHNIQUE: 3 views of the foot were acquired. COMPARISON: [facility], CR, XR FOOT 3VW LT, 09/07/2016, 9:20. FINDINGS: Bones: No fractures or dislocations. Small cortical erosion is noted in the lateral margin of the h ead of the fifth metatarsal concerning for osteomyelitis. Soft tissues: No tibiotalar joint effusion. Achilles tendon appears normal. Marked soft tissue swel ling noted adjacent to the fifth MTP joint. Small cortical erosion is noted in the lateral margin of the head of the fifth metatarsal concerning for osteomyelitis. IMPRESSION: Small fifth metatarsal erosion concerning for osteomyelitis. Dictated by: Radha Collins MD, PhD on 11/09/2016 at 8:23 Approved by: Radha Collins MD, PhD on 11/09/2016 at 8:25
[2016-11-09] MEDS ORDERED: 0.9% Sodium Chloride 1,000 ML IV SCH (08:35)
[2016-11-09] MEDS ORDERED: Vancomycin Inj 1,500 MG in 0.9% Sodium Chloride 500 ML IV ONE (09:00)
[2016-11-09] MEDS ORDERED: Ondansetron 2 mg/mL 2 mL Inj IVPUSH PRN (09:40)
[2016-11-09] MEDS ORDERED: Alum-Mag Hydrox-Simeth 30 mL Suspension PO PRN (09:40)
--- NOTE | 2016-11-09 10:00 | NUR ---
[facility] [place] patient via gurney accompanied by [facility] ED staff, patient appears to be shivering and shaky. Verbalizing pain as 10/10. IVF patent and infusing well. Belongings placed in the med room. Patient not answering questions at this time. Bed alarm in place for safety reason. Call light within reach. Will monitor.
[2016-11-09] MEDS ORDERED: Polyethylene Glycol (PEG) 17 Gm Powder PO PRN (10:10)
[2016-11-09] MEDS: 0.9% Sodium Chloride 1,000 ML IV SCH (11:21)
--- NOTE | 2016-11-09 13:20 | PCM.CHPPOD ---
Subjective Date of service Nov 09, 2016 History of Present Illness From ED physician's report verbally and in writing, this patient was admitted for left foot cellulitis and abscess with possible underlying osteomyelitis of the left 5th metatarsal. He reportedly took some illicit substance while getting diagnostic workup in the emergency department. The patient is too sedated to talk to me, but breathing regularly. Reason for Consultation Surgical consultation regarding treatment of osteomyeltis/abscess, left foot Allergy Allergies: Coded Allergies: No Known Allergies (Verified Allergy, Unknown, 07/02/16) Medications No Active Prescriptions or Reported Meds Past Medical History Reviewed Admit H&P dictated by: Dr. Martinez Surgeries: Yes Medical History: (1) Lymphangitis (2) Heroin abuse (3) Elevated creatine kinase (4) Rhabdomyolysis (5) Methamphetamine abuse (6) Agitation (7) Hypoxia (8) Polysubstance abuse (9) Respiratory failure (10) Heroin overdose (11) Abscess (12) Cellulitis (13) Foot osteomyelitis, left (14) Muscular dystrophy Surgical History: Social History Hx Alcohol Use: Yes (Distant hx alcoholism) Hx Substance Use: Yes (hx cocaine, meth, heroin) Hx Tobacco Use: Yes Smoking Status: Current Every Day Smoker Podiatry Consult Exam Vital Signs Vital Sign - Last Date Time Temp Pulse Resp B/P Pulse Ox O2 Delivery O2 Flow Rate FiO2 11/09/16 08:27 84 10 152/97 100 Room Air 11/09/16 07:16 37.5 Result Diagram: 11/09/16 0735 11/09/16 0735 Lab Test 11/09/16 07:35 White Blood Count 25.1th/mm3 (3.8-10.1) Red Blood Count 4.20mil/mm3 (4.40-5.80) Hemoglobin 11.9g/dL (13.8-17.2) Hematocrit 35.2% (41.0-50.0) Mean Corpuscular Volume 83.8fL (81-100) Mean Corpuscular Hemoglobin 28.3pg (27.0-35.0) Mean Corpuscular Hemoglobin Concent 33.8% (32.0-37.0) Red Cell Distribution Width 13.2% (12.3-15.4) Platelet Count 397bil/L (150-400) Neutrophils (%) (Auto) 82.5% (40-74) Lymphocytes (%) (Auto) 9.7% (14-46) Monocytes (%) (Auto) 6.5% (4-12) Eosinophils (%) (Auto) 0.6% (0-5) Basophils (%) (Auto) 0.2% (0-3) Sodium Level 139mEq/L (134-144) Potassium Level 4.1mEq/L (3.5-5.2) Chloride Level 101mEq/L (97-108) Carbon Dioxide Level 23mmol/L (18-29) Blood Urea Nitrogen 13mg/dL (6-20) Creatinine 0.64mg/dL (0.76-1.27) Estimat Glomerular Filtration Rate 153mL/min (>59) Glucose Level 121mg/dL (60-99) Lactic Acid Level 1.3mmol/L (0.4-2.0) Calcium Level 8.6mg/dL (8.5-10.1) Magnesium Level 1.8mg/dL (1.6-2.6) Total Bilirubin 0.4mg/dL (0.0-1.2) Aspartate Amino Transf (AST/SGOT) 21U/L (0-50) Alanine Aminotransferase (ALT/SGPT) 19U/L (0-44) Alkaline Phosphatase 88U/L (25-150) Total Protein 6.7g/dL (6.4-8.4) Albumin 3.9g/dL (3.4-5.0) Procalcitonin 0.17ng/mL (0.00-0.08) Exam General: Other (somnolent) Lungs: Normal Air Movement Lower Extremities: Left: Edema localized (forefoot) Lower Extremity Pulses: Palpable: Left Dorsalis Pedis Left Posterior Tibal Right Dorsalis Pedis Right Posterior Tibal Podiatry WOUND : Wound Location/Description 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 Thick callus on right 5th metatarsal head. Ulcer with moderate drainage at left plantar 5th metatarsal head and abscess extending dorsally through the joint. Patient moves too much randomly to allow more in-depth exam. Assessment & Plan Problems: (1) Abscess Plan: The patient will need to be consented for surgery to incise and drain the left foot abscess, excise the area of osteomyelitis, and staged closure. Continue IV antibiotics. He needs to be awake enough for consent. I will defer to tomorrow. In the meantime, the IV antibiotics will help demarcate tissue better. Two surgical procedures will be needed, possibly three, to reach closure. This is a high risk patient who will not do well with outpatient wound care and should not be discharged before a primary closure can be obtained. Status: Acute ICD Code: L02.91 (2) Foot osteomyelitis, left Qualifiers: Osteomyelitis type: unspecified type Qualified Code: M86.9 - Osteomyelitis , unspecified Status: Acute ICD Code: M86.9 Tamara Johnston DPM Nov 09, 2016 13:20
--- NOTE | 2016-11-09 13:50 | PCM.HPMED ---
Subjective Date of Service Nov 09, 2016 Primary Provider: Admitting Physician: Ronnie Chávez Primary Care Physician: Minda Attending Physician: Ronnie Chávez Admit Status: From the Emergency Department, Admit to [facility], Remote Telemetry Chief Complaint: Left foot abscess History of Present Illness: From ED physician's report verbally and in writing, this patient was admitted for left foot cellulitis and abscess with possible underlying osteomyelitis of the left 5th metatarsal. He reportedly took some illicit substance while getting diagnostic workup in the emergency department. The patient is too sedated to talk to me, but breathing regularly. He si responding to pain but not to verbal. No increased work of breathing. Per staff , he woke up to urinate 2-3 times since arriving on the floor. Dr. Johnston from podiatry came to see the pt but could not get him to wake up enought o sign a surgical consent. Thus, she stated she may have to postpone the surgery till AM. Review of Systems: No ROS are obtianed as pt is too drowsy. Allergies Coded Allergies: No Known Allergies (Verified Allergy, Unknown, 07/02/16) Home Medications None PMH IVDU, Meth ADHD, Prior cellulitis and cap 05/17 adm left AMA Surgical History Appendectomy Family History Patient is not providing verbal input Social History Occupation: Patient is not providing verba Hx Alcohol Use: Yes (Distant hx alcoholism) Hx Substance Use: Yes (hx cocaine, meth, heroin) Hx Tobacco Use: Yes Smoking Status: Current Every Day Smoker Living Arrangement: Other (Patient is not providing verbal input) Additional Information Patient was too drowsy to provide social hx Exam Vital Signs Vital Sign - Last Date Time Temp Pulse Resp B/P Pulse Ox O2 Delivery O2 Flow Rate FiO2 11/09/16 08:27 84 10 152/97 100 Room Air 11/09/16 07:16 37.5 Exam General: No acute distress, sleeping soundly HEENT: Normocephalic, atraumatic. External ears without defect.. Oropharynx free of erythema and cobble stoning with moist mucosa. Neck: Supple with full range of motion. No jugular venous distension. No bruits. No lymphadenopathy or thyromegaly. Cardiovascular: Regular rate and rhythm with no murmurs, rubs, or gallops appreciated Pulmonary: Clear to auscultation bilaterally with no crackles, wheezes, or rhonchi. Normal respiratory effort with no use of accessory muscles. Abdomen: Bowel tones present. Flat, mildly tender diffusely, nondistended. No hepatosplenomegaly or masses appreciated. Extremities: No clubbing, cyanosis, left foot is severely swollen Skin: Normal temperature, turgor, and texture; left foot has an ulcer on the lateral side near the fifth MTP, and another smaller ulcer on the plantar ascites present. Lymphanginitis spreading across from the affected area to below the patella on the left slight. Several excoriations over face and hands, unclean, unhygienic appearing hands Neurological: Cranial nerves grossly intact. Responsive to pain, not responsive to verbal No known gait impairment. Psychiatric: Patient is drowsy as above MSK: Moving extremities around Vasc: 2+ pedal pulses, swollen L foot Lab and Diagnostics Result Diagram: 11/09/16 0735 11/09/16 0735 X-Rays, CTs and MRIs PROCEDURE: X-RAY LEFT FOOT COMPLETE, MINIMUM THREE VIEWS ([id number]) INDICATIONS: swollen, hole on bottom of foot, painful IMPRESSION: Small fifth metatarsal erosion concerning for osteomyelitis. Dictated by: Radha Collins MD, PhD on 11/09/2016 at 8:23 Approved by: Radha Collins MD, PhD on 11/09/2016 at 8:25 Assessment & Plan This is a 35-year-old white male with past medical history of IV drug use, methamphetamines, ADHD. History of cellulitis and leaving AMA is presenting today to the ER with Cellulitis/Osteomyelitis of left small toe Osteomyelitis of left MTP admission active -- White count is elevated 25.1, patient is afebrile, no tachycardia, no tachypnea. Does, does not meet sepsis criteria -- X-ray of foot in the ER showed concern for osteomyelitis, will consider MRI if necessary -- Vancomycin, Zosyn were given in the ER and will be continuing these on the floor -- ASO titers, MRSA nasal ordered -- HepC, HIV are ordered -- Podiatry consult: Dr. Johnston has seen the patient but was unable to get surgical consent this patient was drowsy -- Follow blood cx that were done in the ED -- CRP, ESR, pro-calcitonin levels are ordered -- We will consider ID consult as needed --UA w/reflex cx -- Pain control with IV morphine and oxycodone IVDU, chronic active -- Precautions by locking away patient's belongings, not allowing frequent visitors -- Urine drug screen is ordered: Positive for meth, opioids ADHD chronic presumed active -- not on meds currently -- Continue to monitor Excessive sleepiness present on admission acute -- Patient was noted to be doing some form of drugs while being diagnosed in the ER -- Urine drug tox is above --Tele monitoring Hisgh Risk Meds: Vancomycin CODE STATUS/ADM: As described above patient was very drowsy/under the influence. Did not answer questions during the interview. We will bring this up with him in the a.m. Patient is admitted under Inpatient status with expected length of stay greater than 2 midnights due to severity of presenting symptoms, risk of adverse event, and complexity of treatment plan. Pain Evaluation: Adequate Pain Control Resuscitation Status: CPR: Attempt Resuscitation Time spent 45 min Yael Flaherty DO Nov 09, 2016 10:10
--- NOTE | 2016-11-09 14:05 | NUR ---
Social Work: Brief Note SW visited patient's room in an attempt to complete initial assessment. Patient was admitted on 11/09/16 for cellulitis per H&P. EMR reviewed. Patient has a hx of IVDU. Patient has a hx of cocaine, meth, and heroin. SW was unable to complete initial assessment. Patient has been unable to arouse since arrival upon unit at 1000. Patient is unable to answer any questions. No family is at bedside. SW will revisit patient at a later time. PELON Mancilla
--- NOTE | 2016-11-09 14:49 | NUR ---
ADMIT NOTE Patient will not respond to questions, appears to be sleeping but awake to go to bathroom, or when refusing lab draw. Otherwise patient unresponsive to admit questions, denies pain, and taking any medications.
[2016-11-09 16:30] LABS: APPEARANCE,URINE CLEAR (CLEAR,HAZY); COLOR,URINE STRAW (YELLOW); OCCULT BLOOD,URINE NEGATIVE (NEGATIVE); PH,URINE 7.5 (5.0-8.0); UROBILINOGEN,URINE NORMAL (NORMAL)
[2016-11-09] MEDS: Vancomycin Inj 1,250 MG in 0.9% Sodium Chloride 250 ML IV SCH (17:07)
[2016-11-09] MEDS: Piperacillin-Tazo 3.375 Gm Inj 3.375 GM in Dextrose 5% Minibag Plus 50 ML IV SCH (18:57)
[2016-11-10] VITALS (12 sets, daily range): BP systolic 109–127; BP diastolic 64–80; PULSE 52–76; RESP 13–19; O2SAT 95–100
[2016-11-10] MEDS: Piperacillin-Tazo 3.375 Gm Inj 3.375 GM in Dextrose 5% Minibag Plus 50 ML IV SCH ×3 (00:57→16:48)
[2016-11-10] MEDS: Vancomycin Inj 1,250 MG in 0.9% Sodium Chloride 250 ML IV SCH ×2 (01:44→09:41)
[2016-11-10] MEDS: 0.9% Sodium Chloride 1,000 ML IV SCH ×3 (01:49→16:18)
--- NOTE | 2016-11-10 06:37 | NUR ---
Shift note uneventful night continues to sleep throughout night not waking long enough to converse using in urinal "wants to eat" understands NO status
[2016-11-10 07:14] LABS: BASOPHILS % (AUTO) 0.4 % (0-3); EOSINOPHILS % (AUTO) 1.5 % (0-5); MONOCYTES % (AUTO) 8.1 % (4-12); Mean Corpuscular Hemoglobin 28.3 pg (27.0-35.0); Mean Corpuscular Volume 85.7 fL (81-100); NEUTROPHILS % (AUTO) 73.9 % (40-74); Platelet Count 379 bil/L (150-400)
[2016-11-10 08:27] LABS: ERYTHROCYTE SEDIMENTATION RATE 33 mm/hr (0-15)
[2016-11-10] MEDS ORDERED: Vancomycin Dose per Pharmacist XX SCH (08:30)
[2016-11-10] MEDS ORDERED: Vancomycin Serum Trough XX ONE (09:00)
[2016-11-10] MEDS ORDERED: MetoCLOpramide 5 mg/mL 2 mL Inj ONE (10:57)
[2016-11-10] MEDS ORDERED: HYDROmorphone 1 mg/mL Inj ONE (10:57)
[2016-11-10] MEDS ORDERED: Propofol 10,000 mCg/mL 20 mL Inj ONE (10:57)
[2016-11-10] MEDS ORDERED: Ondansetron 2 mg/mL 2 mL Inj ONE (10:57)
--- NOTE | 2016-11-10 11:39 | NUR ---
VIKRAM/OR Patient consented this morning by Dr. Johnston for I&D and resection of all infected soft tissue and bone left foot. Patient A/O x3 aware of the procedure. Report given to Serena MESSER, all due antibiotics administered this am. IVF patent and saline locked at this time. Patient prep for the procedure, transported to OR by Jamie.
--- NOTE | 2016-11-10 12:22 | PCM.CONPHA ---
Assessment/Plan Assessment/Plan Pharmacy Kinetic Dosing Vancomycin Indication: LEFT FOOT CELLULITIS Vanc goal trough: 10-15mcg/mL Pt wt: 77.3 kg Other ABX: ZOSYN Cultures: Blood NEGATIVE, MRSA PRESUMPTIVE POSITIVE? SCr: 0.64mg/dL Assessment/Plan: - Loading dose of Vancomycin 1500mg given. - Vancomycin 1250 mg Q8H produced a trough of 8.8. Per Attending would like to keep patient on Vancomycin due to PRESUMPTIVE MRSA DETECTED. Will increase dose to 1000 mg q6h to attempt to get patients trough within range of 10-15 with the next trough scheduled prior to 4th dose on 11/11 @0900. Pharmacy appreciates consult and will continue to monitor. Jessa Andrade PharmD Nov 10, 2016 12:22
[2016-11-10] MEDS ORDERED: Lidocaine PF 1% 30 mL Inj INFILTRATE ONE (12:25)
[2016-11-10] MEDS ORDERED: Bupivacaine-MPF 0.5% 30 mL Inj INFILTRATE ONE (12:25)
[2016-11-10] MEDS ORDERED: Lactated Ringer's 1,000 ML IV SCH (12:29)
[2016-11-10] MEDS ORDERED: Lactated Ringer's 500 ML IV PRN (12:29)
--- NOTE | 2016-11-10 12:29 | PCM.HPANE ---
Patient Data Surgeon Admitting Provider:Yael Flaherty DO Attending Provider:Yael Flaherty DO Primary Care Physician:Minda Other Provider: Reason for Visit Left Foot Cellulitis Ht/WT & BMI Height (Feet): 5 Height (Inches): 10 Weight (Kilograms): 77.27 Body Mass Index Allergies Coded Allergies: No Known Allergies (Verified Allergy, Unknown, 07/02/16) Past Anesthesia History Anesthesia History: Denies:: Abnormal Airway, Anesthesia Reactions, Difficult Intubation, Fam Anesthesia Reaction, Fam Malignant Hypertherm, Malignant Hyperthermia Diabetes History Hx Diabetes?: No MRSA MRSA: Yes Medications No Active Prescriptions or Reported Meds History History of ENT Problems?: No HEENT History: Positive for:: Sinus Problem (Allergies) Denies:: Cataracts Dysphagia Denture Type: None Teeth Condition: Broken Teeth Tooth Decay Missing Teeth Hx of Heart Problems?: No Cardiovascular History: Denies:: AICD Abdominal Aortic Aneurism Atrial Fibrillation Cardiac Surgery Chest Pain Congestive Heart Failure Coronary Artery Disease Edema Heart Murmur Hypertension Irregular Heartbeat Pacemaker Peripheral Vascular Rheumatic Fever Thrombophlebitis Valvular Heart Disease Hx of Respiratory Problem?: No Respiratory History: Denies:: Asthma COPD Chest Surgery Cough Dyspnea Emphysema Hemoptysis Oxygen Administration Pneumonia Pulmonary Embolism Tuberculosis Use of C-PAP Machine Use of Inhalers / NEBS Hx Neurologic Problems?: No Neurological History: Denies:: Alzheimer's Disease CVA Dementia Dizziness Headaches Parkinson's Disease Seizures Hx of GI Problems?: Yes Hx of Problems?: No Genitourinary History: Denies:: HX of Hemodialysis Kidney Stones Urinary Tract Infection HX of Peritoneal Dialysis: No Male Hx: Denies:: Prostate Problems Scrotal Mass Testicular Surgery Skin History: Denies:: History Skin Disorders? Pressure Ulcers Other Skin Pertinent History: multiple open wounds (small on arms , legs, face and torso. Hx Musculoskeletal Problems?: No Musculoskeletal History: Denies:: Back Injury Joint Replacement Musculoskeletal Trauma Hx of Psycho/Social Problems?: Yes Psycho Social History: Positive for:: Anxiety Denies:: Bipolar Disorder Hx Depression Suicide Attempt Hx Surgeries?: Yes Hx Any Other Health Problems?: No Other History: Positive for:: Hospitalization ([facility]) Denies:: Cancer Thyroid Disease History Blood Transfusions: Positive for:: Accept Blood Products? Denies:: Blood Transfuse Reaction Blood Transfusions Hx Diabetes: No Occupation: Patient is not providing verba Hx Alcohol Use: YesHx Substance Use: Yes Smoking Status: Current Every Day Smoker Have You Smoked inLast 12 mo: YesApprox How Many Cigarettes/day: 1/2 PACK /DAY Stop/Bang Treated for Sleep Apnea?: No Do You Have a CPAP Machine?: No S-Snoring: Do You Snore Loudly: No T-Tired: feel tired, fatigued: No O-Obsered: Observed not breath: No P-Blood Pressure: treated: No B- Body Mass Index > 35 kg/m2: No A- Age over 50: No N- Neck Large Circumference: No G- Gender Male: Yes JIMENA Total Score: 1 Risk Assessment Category Category 1A: Patient has history of documented sleep apnea, and HAS NOT received any narcotic, sedative or anesthesia administration during this stay. Category 1B: Patient has history of documented sleep apnea, and HAS received any narcotic , sedative or anesthesia administration during this stay Category 2: Patient has SUSPECTED Obstructive Sleep Apnea, and HAS received any narcotic , sedative or anesthesia administration during this stay. Category 3: Patient has SUSPECTED Obstructive Sleep Apnea and HAS NOT received narcotic, sedative or anesthesia administration during this stay. Category 4: Outpatient in Procedural Areas with known sleep apnea or who screen positive for High Risk via the STOP/BANG questionnaire. Exam Exam Vital Signs Vital Signs Date Time Temp Pulse Resp B/P Pulse Ox O2 Delivery O2 Flow Rate FiO2 11/10/16 11:05 36.7 68 18 122/71 100 Room Air 11/10/16 08:00 52 11/10/16 06:00 36.9 67 16 127/80 100 Room Air General Appearance: Alert, Oriented X3, Cooperative, No Acute Distress HEENT/AIRWAY: MP 2, Neck Movement (FROM), Mouth Opening (3 FBMO) Lungs: Normal Air Movement Heart: Exam Unremarkable, Regular Rate/Rhythm, No Murmurs/Rubs/Gallops Meds/Labs/Diagnostics Admission Meds Current Medications Piperacillin Sod/ Tazobactam Sod 3.375 gm/Dextrose/ Water 50 ml @ 12.5 mls/hr Q8 IV Last administered on 11/10/16 07:57; Start 11/09/16 at 16:30 Vancomycin HCl/ Sodium Chloride (Vancocin Inj/ Normal Saline) 250 ml @ 166.667 mls/hr Q8H IV Last administered on 11/10/16 09:41; Start 11/09/16 at 17:30 Labs Test 11/09/16 07:35 11/09/16 16:06 11/10/16 06:25 11/10/16 09:00 Lactic Acid Level 1.3mmol/L (0.4-2.0) Magnesium Level 1.8mg/dL (1.6-2.6) Procalcitonin 0.17ng/mL (0.00-0.08) Streptozyme 316.0IU/mL (0.0-200.0) Urine Color Straw (YELLOW) Urine Appearance Clear (CLEAR,HAZY) Urine pH 7.5 (5.0-8.0) Urine Specific [place] 1.015 (1.003-1.035) Urine Protein Negativemg/dL (NEG,TRACE) Urine Glucose (UA) Negativemg/dL (NEGATIVE) Urine Ketones Negativemg/dL (NEGATIVE) Urine Occult Blood Negative (NEGATIVE) Urine Nitrite Negative (NEGATIVE) Urine Bilirubin Negative (NEGATIVE) Urine Urobilinogen Normalmg/dL (NORMAL) Urine Leukocyte Esterase Negative (NEGATIVE) Urine RBC 0-2/hpf (0-2) Urine WBC 0-5/hpf (0-5) Urine Epithelial Cells Occasional/hpf (NONE-MOD) Urine Crystals None seen (NONE SEEN) Urine Bacteria Few/hpf (NONE-FEW) Urine Hyaline Casts None/lpf (NONE) Urine Granular Casts None seen (NONE SEEN) Urine Waxy Casts None seen (NONE SEEN) Urine Red Blood Cell Casts None seen (NONE SEEN) Urine White Blood Cell Casts None seen (NONE SEEN) Urine Mucus None seen (None Seen) Urine Trichomonas None seen (NONE SEEN) Urine Yeast None (NONE SEEN) Urinalysis Comment None Urine Culture Reflexed Not indicated Urine Opiates Screen Positive Urine Methadone Screen Negative Urine Barbiturates Screen Negative Urine Amphetamines Screen Positive Urine Benzodiazepines Screen Negative Urine Cocaine Metabolite Screen Negative Urine Cannabinoids Screen Negative White Blood Count 12.5th/mm3 (3.8-10.1) Red Blood Count 4.48mil/mm3 (4.40-5.80) Hemoglobin 12.7g/dL (13.8-17.2) Hematocrit 38.4% (41.0-50.0) Mean Corpuscular Volume 85.7fL (81-100) Mean Corpuscular Hemoglobin 28.3pg (27.0-35.0) Mean Corpuscular Hemoglobin Concent 33.1% (32.0-37.0) Red Cell Distribution Width 13.5% (12.3-15.4) Platelet Count 379bil/L (150-400) Neutrophils (%) (Auto) 73.9% (40-74) Lymphocytes (%) (Auto) 15.5% (14-46) Monocytes (%) (Auto) 8.1% (4-12) Eosinophils (%) (Auto) 1.5% (0-5) Basophils (%) (Auto) 0.4% (0-3) Erythrocyte Sedimentation Rate 33mm/hr (0-15) Sodium Level 139mEq/L (134-144) Potassium Level 4.2mEq/L (3.5-5.2) Chloride Level 103mEq/L (97-108) Carbon Dioxide Level 21mmol/L (18-29) Blood Urea Nitrogen 8mg/dL (6-20) Creatinine 0.53mg/dL (0.76-1.27) Estimat Glomerular Filtration Rate 190mL/min (>59) Glucose Level 98mg/dL (60-99) Calcium Level 8.8mg/dL (8.5-10.1) Total Bilirubin 0.6mg/dL (0.0-1.2) Aspartate Amino Transf (AST/SGOT) 15U/L (0-50) Alanine Aminotransferase (ALT/SGPT) 15U/L (0-44) Alkaline Phosphatase 77U/L (25-150) C-Reactive Protein 4.4mg/dL (0.0-0.5) Total Protein 6.5g/dL (6.4-8.4) Albumin 3.7g/dL (3.4-5.0) Hepatitis C Comment . Vancomycin Level Trough 8.8mcg/mL Plan Impression Patient chart reviewed, patient interviewed and anesthestic plan with risks, benefits, and alternatives discussed, and informed consent obtained. NPO per Anesth. Guidelines: Yes ASA Physical Status: ASA2 Mod Systemic Disease Anesthetic Plan: GA Bene/Risks/Altern/Consents: Yes HP Complete Prior to Induction: Yes Luis Haro MD Nov 10, 2016 11:21
[2016-11-10] MEDS ORDERED: MetoCLOpramide 5 mg/mL 2 mL Inj IVPUSH PRN (12:30)
[2016-11-10] MEDS ORDERED: EPHEDrine Sulfate 50 mg/mL Inj IVPUSH PRN (12:30)
[2016-11-10] MEDS ORDERED: HYDROmorphone 1 mg/mL Inj IVPUSH PRN (12:30)
[2016-11-10] MEDS ORDERED: Phenylephrine 10,000 mCg/mL Inj IVPUSH PRN (12:30)
[2016-11-10] MEDS ORDERED: Atropine 0.4 mg/mL Inj IVPUSH PRN (12:30)
[2016-11-10] MEDS ORDERED: Labetalol 5 mg/mL 20 mL Inj IV PRN (12:30)
[2016-11-10] MEDS ORDERED: Dexamethasone 4 mg/mL Inj IVPUSH PRN (12:30)
[2016-11-10] MEDS ORDERED: Ondansetron 2 mg/mL 2 mL Inj IVPUSH PRN (12:30)
[2016-11-10] MEDS ORDERED: fentaNYL-PF 50 mCg/mL 2 mL Inj IVPUSH PRN (12:30)
--- NOTE | 2016-11-10 13:00 | PCM.PODPO ---
Podiatry Operative Report Date of Service: Nov 10, 2016 Date of Service Nov 10, 2016 Pre Operative Diagnosis Abscess cellulitis left foot Osteomyelitis left fifth toe and left fifth metatarsal head Post Operative Diagnosis Same as preoperative diagnoses Procedure Incision and drainage left foot Amputation of left fifth toe with partial fifth metatarsal indication Surgeon Surgeon: Curly Barnes DPM Assistants: None Indication for Procedure Osteomyelitis and abscess and cellulitis of the left foot Findings Abscess of the left fifth metatarsal phalangeal joint likely stemming from sub- met 5 hyperkeratoses with clear osseous necrosis of the base of the fifth digit and fifth metatarsal head Details of Procedure Patient was identified in the preoperative holding area. All preoperative comorbidities and allergies were identified and thoroughly discussed. The patient was transported into the operating room and placed on the operating room table in the normal supine position. The patient was then prepped and draped in the normal aseptic technique. Attention was first paid the lateral aspect of the left foot. Inspection of the left fifth metatarsophalangeal joint revealed severe erythema with a dorsal ulceration measuring approximately 2.5 cm x 2.5 cm with moderate purulent drainage and exposed bone. A wound culture was taken. This wound probes to a plantar fifth metatarsophalangeal joint ulceration which measures 1.5 cm x 1.5 cm. Debridement of the dorsal and plantar ulceration was performed with a wrong drawer and sharply with a #15 blade. This wound copiously flush with large amounts of normal saline. A moderate amount of purulent discharge was noted emanating from the base of the fifth digit. A #15 blade was utilized to extend an incision distally from the dorsal ulceration and a fifth digit were circumferentially amputated utilizing a racquet style incision. The fifth digit was amputated at the level of the fifth metatarsophalangeal joint and sent for microbiologic analysis. All necrotic and nonviable soft tissue was debrided from the resultant wound and tendinous tissue was resected as far proximally as possible. This wound was again closely flushed with large amounts of normal saline. Approximately 1.5 cm of the distal aspect of the left fifth metatarsal including the left fifth metatarsal head was then excised utilizing a sagittal saw. The wound was again closely flushed with large amounts of normal saline. No further necrotic tissue was noted. The fifth digit amputation site was partially closed utilizing 3. 0 nylon suture the dorsal and plantar ulceration sites were left open and packed with 1/4 inch iodoform packing gauze these wounds were then dressed with Adaptic sterile 4 x 4 gauze AVD pad Kerlix and an Sudeep bandage. No competitions occur during this procedure the patient was given a postoperative local block consisting of 10 mL half percent Marcaine plain. Grafts, Implants: None Complications There were no periprocedural complications identified. Condition Stable Anesthetic Administered: GA Catheters: None Output, Estimated Blood Loss: 30 Blood Admin during surgery: No Surgical Cast or Splint: None Surgical Specimen Removed: No Specimen sent to Pathology: No Post Operative Plan Elevate left lower extremity Keep dressing clean dry and intact Nonweightbearing left foot Transfer back to floor when stable under hospitalist service care Restart inpatient medications per hospitalist service recommendations Advance diet as tolerated Dressing is to be changed by podiatry service only Patient will be followed by Dr. Johnston tomorrow. Please contact podiatry service with any questions or concerns regarding care. Curly Barnes DPM Nov 10, 2016 13:00
--- NOTE | 2016-11-10 13:04 | PCM.ANEP1 ---
Post Anesthesia PACU Phase 1 Assessment Vital Signs Vital Signs Date Time Temp Pulse Resp B/P Pulse Ox O2 Delivery O2 Flow Rate FiO2 11/10/16 12:57 36.1 109/64 11/10/16 11:05 36.7 68 18 122/71 100 Room Air 11/10/16 08:00 52 11/10/16 06:00 36.9 67 16 127/80 100 Room Air Anesthetic Administered: GA Level of Alertness: Awake, talking JOHNSON's with Equal Strength: Yes Pain: Yes Pain Scale Score: 1 Nausea or Vomiting: No CV Function & Hydration Stable: No Airway Device: Oxygen Delivery: Simple Mask Lungs: Normal Air Movement Dermatome Level: Full Sensation PACU Phase 2 Assessment Complications: No Follow up Care: N/A Patient Instructions Provided: N/A Luis Haro MD Nov 10, 2016 13:03
--- NOTE | 2016-11-10 13:40 | NUR ---
Back to [facility] Patient came back from surgery, A/O x3. Pain level of 7/10, IV Morphine given with relief. Patient got emotional and teary when talk about the plan of care but seems to be cooperative and willing to try to get better this time. Diet as tolerated. Will continue to monitor. Will be on NPO Monday night in preparation for his next procedure on Monday. Instructed and plan on white board.
--- NOTE | 2016-11-10 14:35 | NUR ---
Visitor Deena Watson is allowed to visit pt with door open and her purse at the dental front office assistant
[2016-11-10] MEDS: Vancomycin Inj 1,000 MG in IV Premix 1 EACH IV SCH ×2 (16:10→21:39)
[2016-11-10] MEDS: HYDROcodone-APAP 5-325 mg Tablet PO PRN ×2 (16:46→20:47)
--- NOTE | 2016-11-10 17:47 | NUR ---
Social Work: Initial Assessment Data: See initial assessment. Patient is a 35 year old female who was admitted on 11/09/2016 for left foot cellulitis. Patient's insurance is [facility] [place] [facility]/Disabled and [facility] Medicaid. Patient does not have a PCP listed but during assessment pt referenced a Dr. Mccollum that works accross the [employer] from [facility]. Per patient, he visited Dr. Mccollum when he began having problems with his foot. SW met with patient to discuss discharge planning. SW role explained. Patient states that he lives with a friend in [place]. Patient considers his main support person to be his significant other Deena Kaur. Patient denies having a DPOA or AD and has declined SW offer for resources at this time. Patient confirms that he does drive. Patient denies having a hx of home health services or SNF. Patient denies having any advanced research programs director care insurance or VA benefits. Upon discharge, patient states that transportation will be provided by Deena Watson. SW provided patient with a discharge planning checklist booklet and encouraged to call with any questions or concerns. Phone number provided. Patient will likely need home health services at discharge. SW has received MD order for home health PT and RN. Patient is in agreement with receiving home health services. Assessment: Patient will discharge home with home health services. Plan: Patient will discharge home when medically stable. Patient will require home health services. Patient is in agreement with receiving . Transportation will be provided by Deena. SW will continue to follow for additional needs. PELON Mancilla Addendum: 11/10/16 at 1803 by MELL ABBOTT Amended: Links added.
[2016-11-10] MEDS: HYDROmorphone 1 mg/mL Inj IVPUSH PRN (20:15)
--- NOTE | 2016-11-10 20:23 | PCM.PNMED ---
Subjective Date of Service Nov 10, 2016 Subjective Patient is more alert and awake today, he has undergone left foot I&D by Dr. Cameron bates a.m. Gram stain and cultures were ordered from the surgical specimens. Patient denies overnight pain, states he felt some chills overnight. He was tolerating diet. Other concerns Exam Vital Signs Vital Sign - Last Date Time Temp Pulse Resp B/P Pulse Ox O2 Delivery O2 Flow Rate FiO2 11/10/16 06:00 36.9 67 16 127/80 100 Room Air Intake and Output 11/09/16 11/09/16 11/10/16 Cumulative From/Thru 15:00 23:00 07:00 11/09/16 07:16 - 11/10/16 06:32 Intake Total 2000 ml 1052 ml 1884 ml 4936 ml Output Total 2425 ml 1350 ml 3775 ml Balance 2000 ml -1373 ml 534 ml 1161 ml Intake IV Total 2000 ml 1052 ml 1884 ml 4936 ml Output Urine Total 2425 ml 1350 ml 3775 ml Exam Gen.: No acute distress interacting normally communicating verbally HEENT: Normocephalic, patient does have a couple of healing ulcerations over his face Lungs: Clear to auscultation no crackles or wheezes Neck: Trachea central Heart: No S3-S4 murmurs, regular rate and rhythm Extremities: Left foot is wrapped and heavy Skin: Warm and dry, he has ulcerations over his hands and face Neurological: No focal deficits Psychiatric: Negative for anxiety or agitation IVs and Medications Medications Reviewed: Medications were reviewed in detail Lab and Diagnostics Result Diagram: 11/09/16 0735 11/09/16 0735 X-Rays, CTs and MRIs PROCEDURE: X-RAY LEFT FOOT COMPLETE, MINIMUM THREE VIEWS ([id number]) INDICATIONS: swollen, hole on bottom of foot, painful IMPRESSION: Small fifth metatarsal erosion concerning for osteomyelitis. Dictated by: Radha Collins MD, PhD on 11/09/2016 at 8:23 Approved by: Radha Collins MD, PhD on 11/09/2016 at 8:25 Assessment & Plan This is a 35-year-old white male with past medical history of IV drug use, methamphetamines, ADHD. History of cellulitis and leaving AMA is presenting today to the ER with Cellulitis/Osteomyelitis of left small toe Osteomyelitis of left fifth MTP admission active -- White count is elevated 25.1 on admission, patient is afebrile, no tachycardia, no tachypnea. Does, does not meet sepsis criteria -- X-ray of foot in the ER showed concern for osteomyelitis -- Vancomycin, Zosyn were given in the ER and will be continuing these on the floor -- ASO titers came back elevated at 316 , MRSA nasal ordered (presumptive MRSA detected) -- HepC, HIV are ordered is also pending -- Podiatry consult: Dr. Johnston has seen the patient but was unable to get surgical consent this patient was drowsy on 11/09, patient is status post I&D in 11/10 -- blood cx that were done in the ED, no growth to date -- CRP (4.4), ESR (30->33), pro-calcitonin levels are ordered -- We will consider ID consult as needed --UA w/reflex cx showed no indication for infection -- Pain control with IV morphine and oxycodone IVDU, chronic active -- Precautions by locking away patient's belongings, not allowing frequent visitors -- Urine drug screen is ordered: Positive for meth, opioids ADHD chronic presumed active -- not on meds currently -- Continue to monitor Excessive sleepiness present on admission acute -- Patient was noted to be doing some form of drugs while being diagnosed in the ER -- Urine drug tox is ordered on 11/09 positive for methamphetamines and opioids -- Discontinue Tele monitoring Hisgh Risk Meds: Vancomycin, morphine CODE STATUS/ADM: As described above patient was very drowsy/under the influence. Did not answer questions during the interview. We will bring this up with him in the a.m. Patient is admitted under Inpatient status with expected length of stay greater than 2 midnights due to severity of presenting symptoms, risk of adverse event, and complexity of treatment plan. Pain Evaluation: Adequate Pain Control Resuscitation Status: CPR: Attempt Resuscitation Time spent 25 minutes Yael Flaherty DO Nov 10, 2016 07:19
--- NOTE | 2016-11-10 21:00 | NUR ---
Pain/sleep After reassessment post morphine patient stated no effect and won't be able to sleep like this text obtained order to change morphine to Dilaudid also Linda for sleep
[2016-11-11] VITALS (9 sets, daily range): BP systolic 123–137; BP diastolic 63–77; PULSE 58–83; RESP 16–18; O2SAT 96–100
[2016-11-11] MEDS: HYDROmorphone 1 mg/mL Inj IVPUSH PRN ×6 (00:33→22:09)
[2016-11-11] MEDS: Vancomycin Inj 1,000 MG in IV Premix 1 EACH IV SCH (04:00)
[2016-11-11] MEDS: Piperacillin-Tazo 3.375 Gm Inj 3.375 GM in Dextrose 5% Minibag Plus 50 ML IV SCH ×3 (08:50)
[2016-11-11] MEDS ORDERED: Vancomycin Serum Trough XX ONE (09:00)
[2016-11-11] MEDS ORDERED: Dalbavancin 500 mg Inj IV ONE (10:25)
--- NOTE | 2016-11-11 10:43 | PCM.PHAPRO ---
Progress Date of Service: Nov 11, 2016 Requesting Provider: Yael Flaherty DO Left foot abscess left foot cellulitis/osteomyelitis, presumptive MRSA. - 35 y/o male patient receiving Vancomycin and Zosyn day 3 for presumptive MRSA of cellulitis/osteomyelitis of his left foot. Patient is active ivdu, with hx of cellulitis and AMA in the past. - Last 24 hrs, underwent I&D am 11/10. SCr is slightly increased today 0.57 from 0.53 from yesterday (0.64 on admission). Cultures showed no growth>24hrs - Vancomycin dose bumped up to 1G iv q6 from 1250mg iv q8h. Trough came back at 13.4, not quite at target of 15-20 yet, but definitely trending up nicely since the dose changed - Will continue with current regimen. Floor pharmacist will determine if another trough is needed pending sensitivity and MRSA Pharmacy will continue to monitor daily Thank you Flynn Stearns, PharmD Denton Stearns Nov 11, 2016 10:43
[2016-11-11] MEDS ORDERED: Dalbavancin Inj 1,500 MG in Dextrose 5% 500 ML IV ONE (11:30)
--- NOTE | 2016-11-11 12:08 | CONS ---
[address] [address] CONSULTATION REPORT PATIENT: NAREN BURR : 1980 MR#: [id number] ADMIT: 11/09/2016 JOB ID: [id number] DATE OF SERVICE: 11/11/2016 INFECTIOUS DISEASE CONSULTATION: I thank Dr. Yael Flaherty for this consult. REASON FOR CONSULTATION: Osteomyelitis left 5th metatarsal. HISTORY OF PRESENT ILLNESS: The patient is a 35-year-old gentleman with a history of polysubstance abuse including IV heroin, meth, and other drugs including ecstasy. He is also a cigarette smoker and has a history of recurrent lower extremity infections, especially around the left 5th toe and metatarsal. Note that he has Wqgbjmx-Hkpvj-Pddfq syndrome, as do several family members. The patient reports he has had irritation and drainage from around that area of the left 5th distal metatarsal for nearly one year but this has not been associated with constitutional symptoms such as fevers, chills, sweats, or weight loss. The patient was hospitalized for infection involving the right foot back in September and at that time was receiving ceftriaxone when he left [facility]. He reports he has been attempting to get some orthopedic shoes to try and prevent infections in his neuropathic deformed feet but this has apparently not worked out today. In any event the patient has had infections involving both feet but the one on the left lateral forefoot has been the most persistent and has led to this admission. At the time of this admission on November 09 the patient's main problem was the pain and swelling in that left lateral forefoot. Imaging showed that there was osteomyelitis and the patient was taken to the operating room by Dr. Barnes, who found that there was osteomyelitis and purulent material at the distal left 5th metatarsal, and he resected that area of bone as well as the as the pinky toe itself. There are also interesting notes suggesting that the patient may have injected illicit substances while in the emergency department being evaluated on November 09, which is relevant one we go to consider his outpatient antibiotic therapy. PAST MEDICAL HISTORY: 1. Polysubstance abuse by many routes and involving a variety of substances up until the time of admission, and perhaps slightly beyond. 2. 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 3. History of bilateral lower extremity cellulitis. 4. ADHD. SOCIAL HISTORY: The patient is a polysubstance abuser who also smokes cigarettes. Apparently does not drink alcohol. He is unemployed. FAMILY HISTORY: Negative for tuberculosis in first- or second-degree relatives. REVIEW OF SYSTEMS: Was done. The patient has no headache. Of great interest is the fact that he had a sore throat a week or so ago. He currently does not have a sore throat, however. No significant cough, shortness of breath, nausea, vomiting, diarrhea, or dysuria. The remainder of the review of systems is negative. PHYSICAL EXAMINATION: Reveals a well-developed, reasonably well-nourished gentleman in no acute distress. He is lying in his hospital bed. His mood and affect seem relatively normal, but he seems quite defensive and perhaps angry at the medical establishment. His current temperature 36.9. He has been afebrile during his 48 hours here. Pulse in the 80s, respiratory rate 18, blood pressure 125/75. He is saturating 99% on room air. Mental status is clear. Eyes without conjunctivitis or scleral icterus. Oral cavity: No thrush or ferric hairy leukoplakia. Neck: Supple. Lungs: Clear. Cardiac tones: No murmur. Abdomen: Without organomegaly or ascites. No suprapubic fullness. He does not have a Noel catheter. He has no evidence of synovitis or significant deformities of his feet that I can ascertain as a nonpodiatrist. His right foot is well perfused and without any lesions. His left foot is wrapped in a postop dressing which I did not remove. His left 5th toe is missing and he can move the other four toes. There is no skin rash that is visible, as mentioned no synovitis, and he seems neurologically intact though we did not do a formal sensory exam due to the presence of his dressing. LABORATORIES: Include white count 25,000 when he came in, now down to 13,000, sed rate 13. Creatinine 0.67. C-reactive protein 4.4, now dropped to 1.6 today. Procalcitonin is negative and not helpful in osteo. Urine screen positive for opiates as well as amphetamines. Urinalysis without white cells. Streptozyme strongly positive at 316. Blood cultures are negative. A MRSA screen of the nose is negative. Interestingly, I spoke in detail to the microbiologist and it appears there is a beta hemolytic strep growing from one of his 2 foot cultures and this likely will be group A or group C strep, which would go along nicely with our positive ASO titer. IMPRESSION: This is a gentleman who probably has some degree of Ejuzfbv-Aykwl-Apqdf as it has also occurred apparently in his father and brother. This is compounded by cigarette smoking and drug abuse, and we are not certain as to what locations exactly have been used for injection drug use, but in any event he now presents with osteomyelitis of his left distal 5th metatarsal which has now been appropriately debrided and resected. By ASO titer as well as culture we know that this is a beta strep and likely group A strep. Ordinarily I would strongly consider a prolonged course of IV antibiotics such as 2-3 weeks of IV antibiotics plus followup of two or three weeks of oral antibiotics but the patient is a very active IV drug user who is reported to have injected in the ED and I think sending him home with a PICC line or any sort of central or permanent IV would be wildly inappropriate. Likewise I do not have a great deal of mike in his ability to take oral antibiotics given the fact he signed out AMA during prior admissions. Though expensive, there is some data from an article by Eleni recently published in the Journal [employer] that suggests that dalbavancin and may have utility in osteomyelitis. Though this is not well studied, I think it represents the best option in a patient such as this to insure that he achieves resolution of what appears to be a very complicated left forefoot infection. RECOMMENDATIONS: 1. Dalbavancin 1.5 g today, to be followed by a dose of dalbavancin 1.5 g to be given as an outpatient here in the [facility] on November 18. 2. I do not think any additional laboratory work will need to be followed on an outpatient basis. 3. The patient should have followup with appropriate specially services to determine if, in fact, he has Ljreqti-Hhfja-Ykbov syndrome and also to provide orthopedic or special footwear if that is needed to prevent future infections. 4. Given the absence of other infectious disease issues, ID will go ahead and sign off at this time.
[2016-11-11] MEDS ORDERED: Dextrose 5% 100 ML IV SCH (12:40)
[2016-11-11] MEDS: HYDROcodone-APAP 5-325 mg Tablet PO PRN ×2 (12:52→19:18)
--- NOTE | 2016-11-11 17:29 | PCM.PNMED ---
Subjective Date of Service Nov 11, 2016 Subjective Patient will need a second round of surgery tomorrow per Dr. Johnston as the wound is left partially open for drainage. Patient says his pain is under control, had no fever/chills. He is fine with possible d/c on Sun (Dr. Johnston recommends that he be kept till Sun) Exam Vital Signs Vital Sign - Last Date Time Temp Pulse Resp B/P Pulse Ox O2 Delivery O2 Flow Rate FiO2 11/11/16 04:56 36.9 74 18 123/75 99 Room Air 11/10/16 13:10 8 Intake and Output 11/10/16 11/10/16 11/11/16 Cumulative From/Thru 15:00 23:00 07:00 11/09/16 07:16 - 11/11/16 06:04 Intake Total 0 ml 2735 ml 1114 ml 8785 ml Output Total 30 ml 1275 ml 1400 ml 6480 ml Balance -30 ml 1460 ml -286 ml 2305 ml Intake Oral 1652 ml 360 ml 2012 ml IV Total 0 ml 1083 ml 754 ml 6773 ml Output Urine Total 1275 ml 1400 ml 6450 ml Estimated Blood Loss 30 ml 30 ml Exam General: NAD Laying in bed w GF HEENT: NCAT Heart:" RRR, no s3/s4 Lungs: CTA, no crackles or wheezes Ext: No swelling, heavy dressings of left foot Nuro: No patellar reflexes Psych: no anxiety IVs and Medications Medications Reviewed: Medications were reviewed in detail Lab and Diagnostics Result Diagram: 11/11/16 0615 11/10/16 0625 X-Rays, CTs and MRIs PROCEDURE: X-RAY LEFT FOOT COMPLETE, MINIMUM THREE VIEWS ([id number]) INDICATIONS: swollen, hole on bottom of foot, painful IMPRESSION: Small fifth metatarsal erosion concerning for osteomyelitis. Dictated by: Radha Collins MD, PhD on 11/09/2016 at 8:23 Approved by: Radha Collins MD, PhD on 11/09/2016 at 8:25 Assessment & Plan This is a 35-year-old white male with past medical history of IV drug use, methamphetamines, ADHD. History of cellulitis and leaving AMA is presenting today to the ER with Cellulitis/Osteomyelitis of left small toe Osteomyelitis of left fifth MTP admission active -- White count is elevated 25.1 on admission, patient is afebrile, no tachycardia, no tachypnea. Does, does not meet sepsis criteria -- X-ray of foot in the ER showed concern for osteomyelitis -- Vancomycin, Zosyn were given in the ER and will be continuing these on the floor -- ASO titers came back elevated at 316 , MRSA nasal ordered (presumptive MRSA detected) -- Hep panel are ordered pending result -- HIV (non reactive) -- Podiatry consult: Dr. Johnston has seen the patient but was unable to get surgical consent this patient was drowsy on 11/09, patient is status post I&D in 11/10 -- blood cx that were done in the ED, no growth to date -- CRP (4.4->1.6), ESR (30->33->17), pro-calcitonin levels are ordered -- UA w/reflex cx showed no indication for infection -- Pain control with IV morphine and oxycodone -- ID is consulted for d/c abx -- NPO after midnight IVDU, chronic active -- Precautions by locking away patient's belongings, not allowing frequent visitors -- Urine drug screen is ordered: Positive for meth, opioids ADHD chronic presumed active -- not on meds currently -- Continue to monitor Excessive sleepiness present on admission resolved -- Patient was noted to be doing some form of drugs while being diagnosed in the ER -- Urine drug tox is ordered on 11/09 positive for methamphetamines and opioids -- Discontinue Tele monitoring 11/10 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 Did not answer questions during the interview. We will bring this up with him in the a.m. Patient is admitted under Inpatient status with expected length of stay greater than 2 midnights due to severity of presenting symptoms, risk of adverse event, and complexity of treatment plan. Pain Evaluation: Adequate Pain Control Resuscitation Status: CPR: Attempt Resuscitation Time spent 25 min Yael Flaherty DO Nov 11, 2016 07:25
--- NOTE | 2016-11-11 18:38 | NUR ---
Shift Report: Patient waiting for next I&D procedure tomorrow, to be NPO at midnight. Pleasant and cooperative. Girlfriend at is only allowed visitor and her purse remains in the med room during visits per the IV Chemical Dependency Population [facility] Official Protocol. New abx started today per I&D team.
[2016-11-12] VITALS (12 sets, daily range): BP systolic 124–173; BP diastolic 68–99; PULSE 62–92; RESP 13–18; O2SAT 98–100
[2016-11-12] MEDS: HYDROmorphone 1 mg/mL Inj IVPUSH PRN ×7 (02:43→21:35)
--- NOTE | 2016-11-12 06:02 | NUR ---
Shift Report Assumed pt care at 1900, pt alert oriented x4 cooperative with care staff, kept NPO post midnight for I/D this am, left foot surgical site kept elevated, dressing c/d/i, call light in reach at all times.
--- NOTE | 2016-11-12 10:30 | NUR ---
Morning Rounds Staffed patient's case with Dr. Flaherty and social media sr strategy manager Margi. Patient is scheduled for I&D today, social media sr strategy manager to follow up on home health needs, possible discharge on 11/13/16.
--- NOTE | 2016-11-12 10:36 | PCM.HPANE ---
Patient Data Surgeon Admitting Provider:Yael Flaherty DO Attending Provider:Yael Flaherty DO Primary Care Physician:Nopcp Other Provider: Reason for Visit Left Foot Cellulitis LEFT FOOT CELLULITIS Ht/WT & BMI Height (Feet): 5 Height (Inches): 10 Weight (Kilograms): 77.27 Body Mass Index Allergies Coded Allergies: No Known Allergies (Verified Allergy, Unknown, 07/02/16) Past Anesthesia History Anesthesia History: Denies:: Abnormal Airway, Anesthesia Reactions, Difficult Intubation, Fam Anesthesia Reaction, Fam Malignant Hypertherm, Malignant Hyperthermia Diabetes History Hx Diabetes?: No MRSA MRSA: Yes Medications Hypertension Medication: No Home Meds Incl Beta Dilcia: No No Active Prescriptions or Reported Meds History History of ENT Problems?: No HEENT History: Positive for:: Sinus Problem (Allergies) Denies:: Abnormal Airway Cataracts Difficult Intubation Dysphagia Denture Type: None Teeth Condition: Broken Teeth Tooth Decay Missing Teeth Hx of Heart Problems?: No Cardiovascular History: Denies:: AICD Abdominal Aortic Aneurism Atrial Fibrillation Cardiac Surgery Chest Pain Congestive Heart Failure Coronary Artery Disease Edema Heart Murmur Hypertension Irregular Heartbeat Pacemaker Peripheral Vascular Rheumatic Fever Thrombophlebitis Valvular Heart Disease Hx of Respiratory Problem?: No Respiratory History: Denies:: Asthma COPD Chest Surgery Cough Dyspnea Emphysema Hemoptysis Oxygen Administration Pneumonia Pulmonary Embolism Tuberculosis Use of C-PAP Machine Use of Inhalers / NEBS Hx Neurologic Problems?: No Neurological History: Denies:: Alzheimer's Disease CVA Dementia Dizziness Headaches Parkinson's Disease Seizures Hx of GI Problems?: Yes Gastrointestinal History: Positive for:: Hepatitis Hx of Problems?: No Genitourinary History: Denies:: HX of Hemodialysis Kidney Stones Urinary Tract Infection HX of Peritoneal Dialysis: No Male Hx: Denies:: Prostate Problems Scrotal Mass Testicular Surgery Skin History: Denies:: History Skin Disorders? Pressure Ulcers Other Skin Pertinent History: multiple open wounds (small on arms , legs, face and torso. Hx Musculoskeletal Problems?: No Musculoskeletal History: Denies:: Back Injury Joint Replacement Musculoskeletal Trauma Other History/Comment Charcot foot Hx of Psycho/Social Problems?: Yes Psycho Social History: Positive for:: Anxiety Denies:: Bipolar Disorder Hx Depression Suicide Attempt Hx Surgeries?: Yes Hx Any Other Health Problems?: No Other History: Positive for:: Hospitalization ([facility]) Denies:: Cancer Thyroid Disease History Blood Transfusions: Positive for:: Accept Blood Products? Denies:: Blood Transfuse Reaction Blood Transfusions Hx Diabetes: No Occupation: Patient is not providing verba Hx Alcohol Use: YesHx Substance Use: Yes Smoking Status: Current Every Day Smoker Have You Smoked inLast 12 mo: YesApprox How Many Cigarettes/day: 1/2 PACK /DAY Stop/Bang Treated for Sleep Apnea?: No Do You Have a CPAP Machine?: No S-Snoring: Do You Snore Loudly: No T-Tired: feel tired, fatigued: No O-Obsered: Observed not breath: No P-Blood Pressure: treated: No B- Body Mass Index > 35 kg/m2: No A- Age over 50: No N- Neck Large Circumference: No G- Gender Male: Yes JIMENA Total Score: 1 JIMENA Risk Assessment: Low Risk, <3 Yes Risk Assessment Category Category 1A: Patient has history of documented sleep apnea, and HAS NOT received any narcotic, sedative or anesthesia administration during this stay. Category 1B: Patient has history of documented sleep apnea, and HAS received any narcotic , sedative or anesthesia administration during this stay Category 2: Patient has SUSPECTED Obstructive Sleep Apnea, and HAS received any narcotic , sedative or anesthesia administration during this stay. Category 3: Patient has SUSPECTED Obstructive Sleep Apnea and HAS NOT received narcotic, sedative or anesthesia administration during this stay. Category 4: Outpatient in Procedural Areas with known sleep apnea or who screen positive for High Risk via the STOP/BANG questionnaire. Exam Exam Vital Signs Vital Signs Date Time Temp Pulse Resp B/P Pulse Ox O2 Delivery O2 Flow Rate FiO2 11/12/16 06:06 64 11/12/16 05:44 36.9 64 16 137/81 100 Room Air General Appearance: Alert, Oriented X3, Cooperative, No Acute Distress HEENT/AIRWAY: MP 2, Neck Movement (FROM), Mouth Opening (3 FBMO) Lungs: Normal Air Movement Heart: Exam Unremarkable, Regular Rate/Rhythm, No Murmurs/Rubs/Gallops Meds/Labs/Diagnostics Admission Meds Current Medications Dalbavancin 1500 mg/Dextrose/Water 500 ml @ 1,000 mls/hr ONCE ONCE IV Last administered on 11/11/16t 12:46; Start 11/11/16 at 11:30; Stop 11/11/16 at 11:59; Status DC Dextrose/Water (D5W) 100 ml @ 0 mls/hr ONCE IV Last administered on 11/11/16t 12 :46; Start 11/11/16 at 12:40 Labs Test 11/09/16 07:35 11/09/16 16:06 11/10/16 06:25 11/11/16 09:00 Lactic Acid Level 1.3mmol/L (0.4-2.0) Magnesium Level 1.8mg/dL (1.6-2.6) Procalcitonin 0.17ng/mL (0.00-0.08) Streptozyme 316.0IU/mL (0.0-200.0) Urine Color Straw (YELLOW) Urine Appearance Clear (CLEAR,HAZY) Urine pH 7.5 (5.0-8.0) Urine Specific [place] 1.015 (1.003-1.035) Urine Protein Negativemg/dL (NEG,TRACE) Urine Glucose (UA) Negativemg/dL (NEGATIVE) Urine Ketones Negativemg/dL (NEGATIVE) Urine Occult Blood Negative (NEGATIVE) Urine Nitrite Negative (NEGATIVE) Urine Bilirubin Negative (NEGATIVE) Urine Urobilinogen Normalmg/dL (NORMAL) Urine Leukocyte Esterase Negative (NEGATIVE) Urine RBC 0-2/hpf (0-2) Urine WBC 0-5/hpf (0-5) Urine Epithelial Cells Occasional/hpf (NONE-MOD) Urine Crystals None seen (NONE SEEN) Urine Bacteria Few/hpf (NONE-FEW) Urine Hyaline Casts None/lpf (NONE) Urine Granular Casts None seen (NONE SEEN) Urine Waxy Casts None seen (NONE SEEN) Urine Red Blood Cell Casts None seen (NONE SEEN) Urine White Blood Cell Casts None seen (NONE SEEN) Urine Mucus None seen (None Seen) Urine Trichomonas None seen (NONE SEEN) Urine Yeast None (NONE SEEN) Urinalysis Comment None Urine Culture Reflexed Not indicated Urine Opiates Screen Positive Urine Methadone Screen Negative Urine Barbiturates Screen Negative Urine Amphetamines Screen Positive Urine Benzodiazepines Screen Negative Urine Cocaine Metabolite Screen Negative Urine Cannabinoids Screen Negative Red Blood Count 4.48mil/mm3 (4.40-5.80) Hemoglobin 12.7g/dL (13.8-17.2) Hematocrit 38.4% (41.0-50.0) Mean Corpuscular Volume 85.7fL (81-100) Mean Corpuscular Hemoglobin 28.3pg (27.0-35.0) Mean Corpuscular Hemoglobin Concent 33.1% (32.0-37.0) Red Cell Distribution Width 13.5% (12.3-15.4) Platelet Count 379bil/L (150-400) Neutrophils (%) (Auto) 73.9% (40-74) Lymphocytes (%) (Auto) 15.5% (14-46) Monocytes (%) (Auto) 8.1% (4-12) Eosinophils (%) (Auto) 1.5% (0-5) Basophils (%) (Auto) 0.4% (0-3) Total Bilirubin 0.6mg/dL (0.0-1.2) Aspartate Amino Transf (AST/SGOT) 15U/L (0-50) Alanine Aminotransferase (ALT/SGPT) 15U/L (0-44) Alkaline Phosphatase 77U/L (25-150) Total Protein 6.5g/dL (6.4-8.4) Albumin 3.7g/dL (3.4-5.0) Hepatitis C Comment . HIV (1&2) Ag and Ab, 4th Generation Non reactive (Non Reactive) Vancomycin Level Trough 13.4mcg/mL Test 11/12/16 05:51 White Blood Count 12.0th/mm3 (3.8-10.1) Erythrocyte Sedimentation Rate 21mm/hr (0-15) Sodium Level 141mEq/L (134-144) Potassium Level 4.4mEq/L (3.5-5.2) Chloride Level 104mEq/L (97-108) Carbon Dioxide Level 24mmol/L (18-29) Blood Urea Nitrogen 8mg/dL (6-20) Creatinine 0.62mg/dL (0.76-1.27) Estimat Glomerular Filtration Rate 159mL/min (>59) Glucose Level 102mg/dL (60-99) Calcium Level 8.6mg/dL (8.5-10.1) C-Reactive Protein 0.8mg/dL (0.0-0.5) Plan Impression Patient chart reviewed, patient interviewed and anesthestic plan with risks, benefits, and alternatives discussed, and informed consent obtained. NPO per Anesth. Guidelines: Yes ASA Physical Status: ASA2 Mod Systemic Disease Anesthetic Plan: MAC Bene/Risks/Altern/Consents: Yes HP Complete Prior to Induction: Yes Luis Saldivar MD Nov 12, 2016 10:36
--- NOTE | 2016-11-12 12:01 | PCM.PNPOD ---
Subjective Date of Service: Nov 11, 2016 Visit Information: Reason for Visit Left Foot Cellulitis Surgery/Surgery Date L FOOT I&D 11/10 Post-Op Day # Date of Admission: Nov 09, 2016 at 09:16 Hospital Day # Subjective: Patient seen at bedside, comfortable, pain well controlled. Objective Vital Sign - Last Date Time Temp Pulse Resp B/P Pulse Ox O2 Delivery O2 Flow Rate FiO2 11/12/16 11:17 36.7 65 18 124/68 99 Room Air 11/10/16 13:10 8 Intake and Output 11/11/16 11/11/16 11/12/16 Cumulative From/Thru 15:00 23:00 07:00 11/09/16 07:16 - 11/12/16 06:02 Intake Total 2116 ml 350 ml 35664 ml Output Total 600 ml 600 ml 7680 ml Balance -600 ml 2116 ml -250 ml 3571 ml Intake Oral 2116 ml 350 ml 4478 ml IV Total 6773 ml Output Urine Total 600 ml 600 ml 7650 ml Estimated Blood Loss 30 ml # Voids 7 7 # Bowel Movements 1 1 Result Diagram: 11/12/16 0551 11/12/16 0551 Lab Test 11/09/16 07:35 11/09/16 16:06 11/10/16 06:25 11/11/16 09:00 Lactic Acid Level 1.3mmol/L (0.4-2.0) Magnesium Level 1.8mg/dL (1.6-2.6) Procalcitonin 0.17ng/mL (0.00-0.08) Streptozyme 316.0IU/mL (0.0-200.0) Urine Color Straw (YELLOW) Urine Appearance Clear (CLEAR,HAZY) Urine pH 7.5 (5.0-8.0) Urine Specific [place] 1.015 (1.003-1.035) Urine Protein Negativemg/dL (NEG,TRACE) Urine Glucose (UA) Negativemg/dL (NEGATIVE) Urine Ketones Negativemg/dL (NEGATIVE) Urine Occult Blood Negative (NEGATIVE) Urine Nitrite Negative (NEGATIVE) Urine Bilirubin Negative (NEGATIVE) Urine Urobilinogen Normalmg/dL (NORMAL) Urine Leukocyte Esterase Negative (NEGATIVE) Urine RBC 0-2/hpf (0-2) Urine WBC 0-5/hpf (0-5) Urine Epithelial Cells Occasional/hpf (NONE-MOD) Urine Crystals None seen (NONE SEEN) Urine Bacteria Few/hpf (NONE-FEW) Urine Hyaline Casts None/lpf (NONE) Urine Granular Casts None seen (NONE SEEN) Urine Waxy Casts None seen (NONE SEEN) Urine Red Blood Cell Casts None seen (NONE SEEN) Urine White Blood Cell Casts None seen (NONE SEEN) Urine Mucus None seen (None Seen) Urine Trichomonas None seen (NONE SEEN) Urine Yeast None (NONE SEEN) Urinalysis Comment None Urine Culture Reflexed Not indicated Urine Opiates Screen Positive Urine Methadone Screen Negative Urine Barbiturates Screen Negative Urine Amphetamines Screen Positive Urine Benzodiazepines Screen Negative Urine Cocaine Metabolite Screen Negative Urine Cannabinoids Screen Negative Red Blood Count 4.48mil/mm3 (4.40-5.80) Hemoglobin 12.7g/dL (13.8-17.2) Hematocrit 38.4% (41.0-50.0) Mean Corpuscular Volume 85.7fL (81-100) Mean Corpuscular Hemoglobin 28.3pg (27.0-35.0) Mean Corpuscular Hemoglobin Concent 33.1% (32.0-37.0) Red Cell Distribution Width 13.5% (12.3-15.4) Platelet Count 379bil/L (150-400) Neutrophils (%) (Auto) 73.9% (40-74) Lymphocytes (%) (Auto) 15.5% (14-46) Monocytes (%) (Auto) 8.1% (4-12) Eosinophils (%) (Auto) 1.5% (0-5) Basophils (%) (Auto) 0.4% (0-3) Total Bilirubin 0.6mg/dL (0.0-1.2) Aspartate Amino Transf (AST/SGOT) 15U/L (0-50) Alanine Aminotransferase (ALT/SGPT) 15U/L (0-44) Alkaline Phosphatase 77U/L (25-150) Total Protein 6.5g/dL (6.4-8.4) Albumin 3.7g/dL (3.4-5.0) Hepatitis C Comment . HIV (1&2) Ag and Ab, 4th Generation Non reactive (Non Reactive) Vancomycin Level Trough 13.4mcg/mL Test 11/12/16 05:51 White Blood Count 12.0th/mm3 (3.8-10.1) Erythrocyte Sedimentation Rate 21mm/hr (0-15) Sodium Level 141mEq/L (134-144) Potassium Level 4.4mEq/L (3.5-5.2) Chloride Level 104mEq/L (97-108) Carbon Dioxide Level 24mmol/L (18-29) Blood Urea Nitrogen 8mg/dL (6-20) Creatinine 0.62mg/dL (0.76-1.27) Estimat Glomerular Filtration Rate 159mL/min (>59) Glucose Level 102mg/dL (60-99) Calcium Level 8.6mg/dL (8.5-10.1) C-Reactive Protein 0.8mg/dL (0.0-0.5) Exam General: Alert, Oriented X3, Cooperative, Other (somnolent) Lungs: Normal Air Movement Lower Extremities: Left: Edema localized (improved) Lower Extremity Pulses: Palpable: Left Dorsalis Pedis Left Posterior Tibal Right Dorsalis Pedis Right Posterior Tibal Podiatry WOUND : Wound Location/Description Dorsal to plantar packing on the lateral aspect of the foot from egress wound through original ulceration, otherwise sutured partial 5th ray amputation wound. Surgical Cast or Splint: None Assessment & Plan Problems: (1) Abscess Plan: Resolved.. Status: Acute ICD Code: L02.91 (2) Foot osteomyelitis, left Qualifiers: Osteomyelitis type: unspecified type Qualified Code: M86.9 - Osteomyelitis , unspecified Plan: Return to OR 11/12/16 for further debridement and delayed primary closure. Patient is agreeable to plan and NPO after midnight. Expect discharge on Monday or Monday. Dressing changed after thorough irrigation with normal saline. Status: Acute ICD Code: M86.9 Tamara Johnston DPM Nov 12, 2016 12:01
[2016-11-12] MEDS ORDERED: fentaNYL-PF 50 mCg/mL 2 mL Inj ONE (12:39)
[2016-11-12] MEDS ORDERED: Propofol 10,000 mCg/mL 20 mL Inj ONE (12:39)
[2016-11-12] MEDS ORDERED: Ondansetron 2 mg/mL 2 mL Inj ONE (12:39)
--- NOTE | 2016-11-12 14:04 | NUR ---
Transfer to OR Patient transferred to OR at this time via stretcher.
[2016-11-12] MEDS ORDERED: Lactated Ringer's 1,000 ML IV ONE (14:16)
[2016-11-12] MEDS ORDERED: Lactated Ringer's 1,000 ML IV SCH (14:38)
[2016-11-12] MEDS ORDERED: Lactated Ringer's 500 ML IV PRN (14:38)
[2016-11-12] MEDS ORDERED: Ondansetron 2 mg/mL 2 mL Inj IVPUSH PRN (14:40)
[2016-11-12] MEDS ORDERED: MetoCLOpramide 5 mg/mL 2 mL Inj IVPUSH PRN (14:40)
[2016-11-12] MEDS ORDERED: Dexamethasone 4 mg/mL Inj IVPUSH PRN (14:40)
[2016-11-12] MEDS ORDERED: Phenylephrine 10,000 mCg/mL Inj IVPUSH PRN (14:40)
[2016-11-12] MEDS ORDERED: EPHEDrine Sulfate 50 mg/mL Inj IVPUSH PRN (14:40)
--- NOTE | 2016-11-12 15:01 | PCM.PODPO ---
Podiatry Operative Report Date of Service: Nov 11, 2016 Date of Service Nov 12, 2016 Pre Operative Diagnosis Postoperative open wound, left foot, status post excision of infected soft tissue and bone Post Operative Diagnosis Postoperative open wound, left foot, status post excision of infected soft tissue and bone Procedure Debridement of nonviable soft tissue and capsular tissue, chronic bursal tissue , scar tissue, skin edges, left foot Surgeon Surgeon: Tamara Johnston DPM Assistants: None Indication for Procedure Residual nonviable tissue, status post partial fifth ray amputation Findings Healthy-appearing wound bed, bleeding from all margins, after resection of nonviable appearing tissue and chronic scarred and bursal tissue. Details of Procedure The patient was identified in the preoperative holding area. He was taken to the operating room and placed on the operating table in supine position. The timeout protocol was completed in the patient's name and site of surgery confirmed. IV sedation was initiated and the left foot anesthetized with 1% lidocaine plain in the local block. The left foot was prepped and draped in usual aseptic manner. The open wound on the dorsolateral aspect of the left foot measured 1.5 x 1.5 cm. It was excised in a 3:1 fashion, carried down to the bone, removing nonviable appearing tissue, tendon, capsule. The open wound on the plantar lateral aspect of the left foot measured 0.5 cm x 0.5 cm. It was excised in a 3:1 fashion through skin, subcutaneous tissue, bursal and capsular tissue. The total depth was 4 cm. The resulting wounds communicated with each other. They were irrigated with normal saline. Active bleeding was controlled with cautery. The wounds were closed independently of each other with 3-0 Prolene in interrupted horizontal and simple sutures. The skin was cleansed and the dressing consisting of Daniel silk, dry gauze, Kerlix, and Sudeep wrap was applied. The patient was weaned off of anesthesia and taken to the recovery room with vital signs stable and the vascular status to the left foot appearing intact. Grafts, Implants: None Complications There were no periprocedural complications identified. Condition Stable Anesthetic Administered: GA Catheters: None Output, Estimated Blood Loss: 10 Blood Admin during surgery: No Surgical Cast or Splint: None Surgical Specimen Removed: No Specimen sent to Pathology: No Post Operative Plan The patient will be nonweightbearing on the left foot. Anticipated discharge home tomorrow. A postsurgical shoe will be ordered. At this point, it appears that all infected tissue and bone has been resected. Oral antibiotics geared after culture results for an additional 7 days post discharge should be adequate. Tamara Johnston DPM Nov 12, 2016 15:01
--- NOTE | 2016-11-12 15:05 | PCM.ANEP1 ---
Post Anesthesia PACU Phase 1 Assessment Vital Signs Vital Signs Date Time Temp Pulse Resp B/P Pulse Ox O2 Delivery O2 Flow Rate FiO2 11/12/16 15:00 92 16 149/82 100 Simple Mask 10 11/12/16 14:55 36.9 92 14 144/92 100 Simple Mask 10 11/12/16 12:42 62 11/12/16 11:17 36.7 65 18 124/68 99 Room Air Anesthetic Administered: MAC Level of Alertness: Awake, talking JOHNSON's with Equal Strength: Yes Pain: Yes Pain Scale Score: 5 Nausea or Vomiting: No CV Function & Hydration Stable: No Airway Device: Oxygen Delivery: Nasal Cannula Lungs: Normal Air Movement PACU Phase 2 Assessment Complications: No Follow up Care: No Patient Instructions Provided: N/A Luis Saldivar MD Nov 12, 2016 15:05
[2016-11-12] MEDS: fentaNYL-PF 50 mCg/mL 2 mL Inj IVPUSH PRN ×2 (15:09→15:12)
[2016-11-12] MEDS: HYDROcodone-APAP 5-325 mg Tablet PO PRN ×2 (15:46→19:57)
--- NOTE | 2016-11-12 16:49 | NUR ---
Patient Anxious/Pain Complaints Contacted Dr. Flaherty with the following cook page: Patient has become anxious and continued to report pain even with pain medications. Is there anything that can be ordered for anxiety. Thanks. Cecily [facility] [phone]
[2016-11-12] MEDS ORDERED: Acetaminophen IV 1,000 MG in IV Premix 1 EACH IV PRN (16:55)
[2016-11-12] MEDS ORDERED: hydrOXYzine Pamoate 25 mg Capsule PO PRN (19:30)
--- NOTE | 2016-11-12 19:52 | PCM.PNMED ---
Subjective Date of Service Nov 12, 2016 Subjective Patient is seen and examined, he states he had tremendous amount of pain until his pain meds were changed this afternoon, Now he feels his pain is under control. Hoping to go home tomorrow. No other concerns. Exam Vital Signs Vital Sign - Last Date Time Temp Pulse Resp B/P Pulse Ox O2 Delivery O2 Flow Rate FiO2 11/12/16 06:06 64 11/12/16 05:44 36.9 16 137/81 100 Room Air 11/10/16 13:10 8 Intake and Output 11/11/16 11/11/16 11/12/16 Cumulative From/Thru 15:00 23:00 07:00 11/09/16 07:16 - 11/12/16 06:02 Intake Total 2116 ml 350 ml 54426 ml Output Total 600 ml 600 ml 7680 ml Balance -600 ml 2116 ml -250 ml 3571 ml Intake Oral 2116 ml 350 ml 4478 ml IV Total 6773 ml Output Urine Total 600 ml 600 ml 7650 ml Estimated Blood Loss 30 ml # Voids 7 7 # Bowel Movements 1 1 Exam General: NAD, Laying in bed w GF, a wet hand towel over his head HEENT: NCAT Heart:" RRR, no s3/s4 Lungs: CTA, no crackles or wheezes Ext: No swelling, heavy dressings of left foot Nuro: No patellar reflexes, neg for altered sensation in legs Psych: no anxiety IVs and Medications Medications Reviewed: Medications were reviewed in detail Lab and Diagnostics Result Diagram: 11/12/16 0551 11/12/16 0551 X-Rays, CTs and MRIs PROCEDURE: X-RAY LEFT FOOT COMPLETE, MINIMUM THREE VIEWS ([id number]) INDICATIONS: swollen, hole on bottom of foot, painful IMPRESSION: Small fifth metatarsal erosion concerning for osteomyelitis. Dictated by: Radha Collins MD, PhD on 11/09/2016 at 8:23 Approved by: Radha Collins MD, PhD on 11/09/2016 at 8:25 Assessment & Plan This is a 35-year-old white male with past medical history of IV drug use, methamphetamines, ADHD. History of cellulitis and leaving AMA is presenting today to the ER with Cellulitis/Osteomyelitis of left small toe Osteomyelitis of left fifth MTP admission active -- White count is elevated 25.1 on admission, patient is afebrile, no tachycardia, no tachypnea. Does, does not meet sepsis criteria -- X-ray of foot in the ER showed concern for osteomyelitis -- Vancomycin, Zosyn were given in the ER and will be continuing these on the floor -- ASO titers came back elevated at 316 , MRSA nasal ordered (presumptive MRSA detected) -- Hep panel are ordered pending result -- HIV (non reactive) -- Podiatry consult: Dr. Johnston has seen the patient but was unable to get surgical consent this patient was drowsy on 11/09, patient is status post I&D in 11/10 and again on 11/12 -- blood cx that were done in the ED, no growth to date -- CRP (4.4->1.6-->0.8), ESR (30->33->17-->21) -- UA w/reflex cx showed no indication for infection -- Pain control with IV dilaudid, IV Tylenol, IV Ketorolac and oxycodone -- ID is consulted for d/c abx: They have given him one dose of "Dalbavancin 1.5 g today, to be followed by a dose of dalbavancin 1.5 g to be given as an outpatient here in the [facility] – [place], [place] on November 18." per ID -- Group B Strep in foot cx x2 Insomnia, acute -- Hydroxyzine PRN and melatonin Anxiety, chronic -- Hydroxyzine PRN and melatonin -- He is on IV dilaudid, refrain from giving ativan and ambien that he is requesting IVDU, chronic active -- Precautions by locking away patient's belongings, not allowing frequent visitors -- Urine drug screen is ordered: Positive for meth, opioids ADHD chronic presumed active -- not on meds currently -- Continue to monitor Excessive sleepiness present on admission resolved -- Patient was noted to be doing some form of drugs while being diagnosed in the ER -- Urine drug tox is ordered on 11/09 positive for methamphetamines and opioids -- Discontinue Tele monitoring 11/10 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 Did not answer questions during the interview. We will bring this up with him in the a.m. Patient is admitted under Inpatient status with expected length of stay greater than 2 midnights due to severity of presenting symptoms, risk of adverse event, and complexity of treatment plan. Pain Evaluation: Adequate Pain Control Resuscitation Status: CPR: Attempt Resuscitation Time spent 25 min Yael Flaherty DO Nov 12, 2016 07:14
[2016-11-13] MEDS: HYDROmorphone 1 mg/mL Inj IVPUSH PRN ×2 (00:54→05:35)
[2016-11-13 05:39] VITALS: BP 140/68; PULSE 72; RESP 17; O2SAT 99
[2016-11-13] MEDS ORDERED: HYDROcodone-APAP 7.5-325 mg Tablet PO PRN (07:20)
[2016-11-13] MEDS ORDERED: HYDROmorphone 1 mg/mL Inj IVPUSH PRN (09:50)
[2016-11-13 10:07] VITALS: BP 142/78; PULSE 93; RESP 16; O2SAT 100
--- NOTE | 2016-11-13 10:08 | PCM.PNPOD ---
Subjective Date of Service: Nov 13, 2016 Visit Information: Reason for Visit Left Foot Cellulitis Surgery/Surgery Date L FOOT I&D 11/10 and delayed primary closure 11/12/2016 Post-Op Day # 1 Date of Admission: Nov 09, 2016 at 09:16 Hospital Day # Postop General: No Complaints Gastrointestinal: Good Appetite Pain Management: PO Postop Activity: Ambulating Independently Objective Vital Sign - Last Date Time Temp Pulse Resp B/P Pulse Ox O2 Delivery O2 Flow Rate FiO2 11/13/16 05:39 72 17 140/68 99 Room Air 11/12/16 19:58 36.6 11/12/16 15:00 10 Intake and Output 11/12/16 11/12/16 11/13/16 Cumulative From/Thru 14:59 22:59 06:59 11/09/16 07:16 - 11/13/16 05:39 Intake Total 200 ml 530 ml 650 ml 87664 ml Output Total 10 ml 10 ml 500 ml 8200 ml Balance 190 ml 520 ml 150 ml 4431 ml Intake Oral 480 ml 650 ml 5608 ml IV Total 200 ml 50 ml 7023 ml Output Urine Total 500 ml 8150 ml Estimated Blood Loss 10 ml 10 ml 50 ml # Voids 3 10 # Bowel Movements 1 Result Diagram: 11/13/16 0613 11/13/16 0613 Lab Test 11/09/16 07:35 11/09/16 16:06 11/10/16 06:25 11/11/16 09:00 Lactic Acid Level 1.3mmol/L (0.4-2.0) Magnesium Level 1.8mg/dL (1.6-2.6) Procalcitonin 0.17ng/mL (0.00-0.08) Streptozyme 316.0IU/mL (0.0-200.0) Urine Color Straw (YELLOW) Urine Appearance Clear (CLEAR,HAZY) Urine pH 7.5 (5.0-8.0) Urine Specific [place] 1.015 (1.003-1.035) Urine Protein Negativemg/dL (NEG,TRACE) Urine Glucose (UA) Negativemg/dL (NEGATIVE) Urine Ketones Negativemg/dL (NEGATIVE) Urine Occult Blood Negative (NEGATIVE) Urine Nitrite Negative (NEGATIVE) Urine Bilirubin Negative (NEGATIVE) Urine Urobilinogen Normalmg/dL (NORMAL) Urine Leukocyte Esterase Negative (NEGATIVE) Urine RBC 0-2/hpf (0-2) Urine WBC 0-5/hpf (0-5) Urine Epithelial Cells Occasional/hpf (NONE-MOD) Urine Crystals None seen (NONE SEEN) Urine Bacteria Few/hpf (NONE-FEW) Urine Hyaline Casts None/lpf (NONE) Urine Granular Casts None seen (NONE SEEN) Urine Waxy Casts None seen (NONE SEEN) Urine Red Blood Cell Casts None seen (NONE SEEN) Urine White Blood Cell Casts None seen (NONE SEEN) Urine Mucus None seen (None Seen) Urine Trichomonas None seen (NONE SEEN) Urine Yeast None (NONE SEEN) Urinalysis Comment None Urine Culture Reflexed Not indicated Urine Opiates Screen Positive Urine Methadone Screen Negative Urine Barbiturates Screen Negative Urine Amphetamines Screen Positive Urine Benzodiazepines Screen Negative Urine Cocaine Metabolite Screen Negative Urine Cannabinoids Screen Negative Red Blood Count 4.48mil/mm3 (4.40-5.80) Hemoglobin 12.7g/dL (13.8-17.2) Hematocrit 38.4% (41.0-50.0) Mean Corpuscular Volume 85.7fL (81-100) Mean Corpuscular Hemoglobin 28.3pg (27.0-35.0) Mean Corpuscular Hemoglobin Concent 33.1% (32.0-37.0) Red Cell Distribution Width 13.5% (12.3-15.4) Platelet Count 379bil/L (150-400) Neutrophils (%) (Auto) 73.9% (40-74) Lymphocytes (%) (Auto) 15.5% (14-46) Monocytes (%) (Auto) 8.1% (4-12) Eosinophils (%) (Auto) 1.5% (0-5) Basophils (%) (Auto) 0.4% (0-3) Total Bilirubin 0.6mg/dL (0.0-1.2) Aspartate Amino Transf (AST/SGOT) 15U/L (0-50) Alanine Aminotransferase (ALT/SGPT) 15U/L (0-44) Alkaline Phosphatase 77U/L (25-150) Total Protein 6.5g/dL (6.4-8.4) Albumin 3.7g/dL (3.4-5.0) Hepatitis C Comment . HIV (1&2) Ag and Ab, 4th Generation Non reactive (Non Reactive) Vancomycin Level Trough 13.4mcg/mL Test 11/13/16 06:13 White Blood Count 11.3th/mm3 (3.8-10.1) Erythrocyte Sedimentation Rate 29mm/hr (0-15) Sodium Level 140mEq/L (134-144) Potassium Level 4.5mEq/L (3.5-5.2) Chloride Level 105mEq/L (97-108) Carbon Dioxide Level 21mmol/L (18-29) Blood Urea Nitrogen 16mg/dL (6-20) Creatinine 0.68mg/dL (0.76-1.27) Estimat Glomerular Filtration Rate 143mL/min (>59) Glucose Level 116mg/dL (60-99) Calcium Level 8.7mg/dL (8.5-10.1) C-Reactive Protein 0.4mg/dL (0.0-0.5) Exam General: Alert, Oriented X3, Cooperative, Other (somnolent) Lungs: Normal Air Movement Lower Extremities: Left: Edema localized (improved) Lower Extremity Pulses: Palpable: Left Dorsalis Pedis Left Posterior Tibal Right Dorsalis Pedis Right Posterior Tibal Podiatry WOUND : Incision General Appearence: Wound under dressing (no removal until Monday) Surgical Cast or Splint: None Assessment & Plan Problems: (1) Abscess Plan: Resolved.. Status: Acute ICD Code: L02.91 (2) Foot osteomyelitis, left Qualifiers: Osteomyelitis type: unspecified type Qualified Code: M86.9 - Osteomyelitis , unspecified Plan: Infected bone and soft tissue resected, delayed primary closure performed yesterday. Fragile left foot incisions need nonweightbearing or heel touch weightbearing outpatient. Postop shoe to protect dressing. No further intervention planned from our standpoint. Patient is eager to leave. That will depend on medical clearance and plans for outpatient follow up. He needs to see Dr. Barnes on Monday afternoon, 11/15/2016 check in 3pm, appointment time 3: 10pm. [phone]. Status: Acute ICD Code: M86.9 Tamara Johnston DPM Nov 13, 2016 10:08
--- NOTE | 2016-11-13 11:13 | PCM.DIMED ---
Discharge Instructions Date of Service Nov 13, 2016 Dates of Hospitalization Nov 09, 2016 at 09:16 Discharge Diagnosis Discharge Diagnosis Left foot Cellulitis/Osteomyelitis Diet Discharge Diet: No restrictions Activity Discharge Activity: Limited until seen by PCP Call your provider Call your provider for: Fever or Chills, Shortness of breath, Bleeding, Chest pain, Vomitting, Excessive diarrhea, Weakness (unilateral) Patient Instructions Patient Instructions The patient will be nonweightbearing on the left foot. A postsurgical shoe is ordered by Dr. Johnston. Patient should follow up with Dr. Johnston for possible referral to orthopedics for Charcot Chula Tooth as pt states he has this diagnosis Follow-up plan Pl f/u with Dr. Johnston on 11/15/16 for dessing changes. Do not unwrap the dressing till then, we request the Dr. Johnston address the Charcot Chula Tooth syndrome Please f/U at [facility] one more dose of dalbivancin 1.5 g to be given as outpatient here at [facility] on 11/18/16 Yael Flaherty DO Nov 13, 2016 11:13
[2016-11-13] MEDS ORDERED: OXYC-465 PO (11:26)
[2016-11-13] MEDS ORDERED: IBUP-1827 PO (11:27)
--- NOTE | 2016-11-13 11:30 | NUR ---
Social Work- Discharge Data: EMR reviewed. Pt is on day 4 of hospitalization for left foot cellulitis. Pt discussed in multidisciplinary rounds, pt is medically ready for discharge. Pt will not change his dressing until Monday when he follows up with Podiatry on November 15. Pt is aware of this. Pt has been ambulating independently in his room. Pt is on oral medications. HH orders have been received, pt is not homebound at this time. [place] [facility] [place] one time IV abx dose on November 18. Orders are written and submitted to [facility]. 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 SW met with pt and SO at bedside regarding discharge plan. Pt confirms that he is not homebound and would not qualify for HH services. Pt's SO will be caring for pt at discharge, they are currently living together. Pt's SO to provide transport home. SW confirmed that pt is aware and agreeable to all follow up appointments, including [facility] [place], PCP at the [facility], and Podiatry. Pt and SO asked about inpt treatment and the process for this. Informal CD assessment completed. Pt has a history of meth and heroin use, reports approximately 15 years. Pt has history of inpt tx through [facility] "a couple" years ago and remained clean for 2 years after that. Pt is interested in inpt treatment again, SW discussed necessity of BHO assessment that can be completed at [place] or other organizations on the outpt resource sheet provided at bedside. Pt reports he is familiar with this process. Outpt CD resources provided to pt at bedside. Pt is hopeful to establish regular follow up with a new provider at the [facility] so that he can manage his pain more effectively. Pt reports that he uses meth and heroin as a self-medicating/pain control method. Pt's chronic pain is a barrier to sobriety. Discussed importance of effective pain management and regimen prior to inpt tx to facilitate sobriety. Pt and SO agree with this. SO to transport home at discharge, no additional discharge needs identified. All updated and agreeable to plan. Assessment: Pt who is independent at baseline, requires outpt follow up at d/c. Plan: Pt's outpt follow up is coordinated. CD resources provided to patient at bedside. All updated and agreeable to plan. No additional d/c needs identified. Kimberlyn Belcher MSW
--- NOTE | 2016-11-13 12:10 | NUR ---
Discharge Planning Contacted Dr. Flaherty with the following cook page: Please advise of when discharge orders will be finalized, as patient is asking to be discharged now. Thanks. Cecily [facility] ext [phone]
--- NOTE | 2016-11-13 12:41 | NUR ---
Discharge Note Provided patient with all discharge instructions and information at this time. Patient's IV discontinued intact. Patient and patient's significant other gathered all of patient's belongings from room and secured area, to include set of crutches. Patient was transported to waiting vehicle via wheelchair at this time.
--- NOTE | 2016-11-13 21:37 | PCM.DC.MED ---
Discharge Summary Date of Service Nov 13, 2016 Dates of Hospitalization Date of Hospital Admission Nov 09, 2016 at 09:16 Date of Discharge: Nov 13, 2016 Providers: Admitting Physician: Yael Grigsby DO Primary Care Physician: Minda Attending Physician: Yael Grigsby DO Diagnosis at Time of Discharge Diagnosis at Time of Discharge Left foot Cellulitis/Osteomyelitis Procedures XRay, CTs & MRIs PROCEDURE: X-RAY LEFT FOOT COMPLETE, MINIMUM THREE VIEWS ([id number]) INDICATIONS: swollen, hole on bottom of foot, painful IMPRESSION: Small fifth metatarsal erosion concerning for osteomyelitis. Dictated by: Radha Collins MD, PhD on 11/09/2016 at 8:23 Approved by: Radha Collins MD, PhD on 11/09/2016 at 8:25 Brief History From ED physician's report verbally and in writing, this patient was admitted for left foot cellulitis and abscess with possible underlying osteomyelitis of the left 5th metatarsal. He reportedly took some illicit substance while getting diagnostic workup in the emergency department. The patient is too sedated to talk to me, but breathing regularly. He si responding to pain but not to verbal. No increased work of breathing. Per staff , he woke up to urinate 2-3 times since arriving on the floor. Dr. Matos from podiatry came to see the pt but could not get him to wake up enought o sign a surgical consent. Thus, she stated she may have to postpone the surgery till AM. Hospital Course This is a 35-year-old white male with past medical history of IV drug use, methamphetamines, ADHD. History of cellulitis and leaving AMA is presenting today to the ER with Cellulitis/Osteomyelitis of left small toe and surrounding area Osteomyelitis of left fifth MTP admission active -- White count is elevated 25.1 on admission, patient is afebrile, no tachycardia, no tachypnea. Does, does not meet sepsis criteria -- X-ray of foot in the ER showed concern for osteomyelitis -- Vancomycin, Zosyn were given in the ER and will be continuing these on the floor -- ASO titers came back elevated at 316 , MRSA nasal ordered (presumptive MRSA detected) -- Hep panel are ordered pending result -- HIV (non reactive) -- Podiatry consult: Dr. Matos has seen the patient but was unable to get surgical consent this patient was drowsy on 11/09, patient is status post I&D in 11/10 and again on 11/12 -- blood cx that were done in the ED, no growth to date -- CRP (4.4->1.6-->0.8-->0.4), ESR (30->33->17-->21-->29) -- UA w/reflex cx showed no indication for infection -- Pain control with IV dilaudid, IV Tylenol, IV Ketorolac and oxycodone -- ID is consulted for d/c abx: They have given him one dose of "Dalbavancin 1.5 g today, to be followed by a dose of dalbavancin 1.5 g to be given as an outpatient here in the [facility] on November 18." -- Group B Strep in foot cx x2 -- [employer] Dr. Matos has seen the patient on the day of d/c, before his discharge. Wants to see patient back in her office in 11/15/16 to address the dressings and wound care. She states that it the wound is now closed up, no need for daily dresisng changes at this time. Insomnia, acute -- Hydroxyzine PRN and melatonin were given Anxiety, chronic -- Hydroxyzine PRN and melatonin were given IVDU, chronic active -- Precautions by locking away patient's belongings, not allowing frequent visitors -- Urine drug screen is ordered: Positive for meth, opioids --:Counselled patient on the importance of quitting using IV drugs. 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 Hisgh Risk Meds: dilaudid IV CODE STATUS/ADM: As described above patient was very drowsy/under the influence. Did not answer questions during the interview. We will bring this up with him in the a.m. Patient is admitted under Inpatient status with expected length of stay greater than 2 midnights due to severity of presenting symptoms, risk of adverse event, and complexity of treatment plan. Exam Vital Signs (Last) Date Time Temp Pulse Resp B/P Pulse Ox O2 Delivery O2 Flow Rate FiO2 11/13/16 10:07 36.9 93 16 142/78 100 Room Air 11/12/16 15:00 10 Exam General: NAD, Laying in bed w GF, a wet hand towel over his head HEENT: NCAT Heart:" RRR, no s3/s4 Lungs: CTA, no crackles or wheezes Ext: No swelling, heavy dressings of left foot Nuro: No patellar reflexes, neg for altered sensation in legs Psych: no anxiety Test 11/09/16 07:35 11/09/16 16:06 11/10/16 06:25 11/11/16 09:00 Lactic Acid Level 1.3mmol/L (0.4-2.0) Magnesium Level 1.8mg/dL (1.6-2.6) Procalcitonin 0.17ng/mL (0.00-0.08) Streptozyme 316.0IU/mL (0.0-200.0) Urine Color Straw (YELLOW) Urine Appearance Clear (CLEAR,HAZY) Urine pH 7.5 (5.0-8.0) Urine Specific [place] 1.015 (1.003-1.035) Urine Protein Negativemg/dL (NEG,TRACE) Urine Glucose (UA) Negativemg/dL (NEGATIVE) Urine Ketones Negativemg/dL (NEGATIVE) Urine Occult Blood Negative (NEGATIVE) Urine Nitrite Negative (NEGATIVE) Urine Bilirubin Negative (NEGATIVE) Urine Urobilinogen Normalmg/dL (NORMAL) Urine Leukocyte Esterase Negative (NEGATIVE) Urine RBC 0-2/hpf (0-2) Urine WBC 0-5/hpf (0-5) Urine Epithelial Cells Occasional/hpf (NONE-MOD) Urine Crystals None seen (NONE SEEN) Urine Bacteria Few/hpf (NONE-FEW) Urine Hyaline Casts None/lpf (NONE) Urine Granular Casts None seen (NONE SEEN) Urine Waxy Casts None seen (NONE SEEN) Urine Red Blood Cell Casts None seen (NONE SEEN) Urine White Blood Cell Casts None seen (NONE SEEN) Urine Mucus None seen (None Seen) Urine Trichomonas None seen (NONE SEEN) Urine Yeast None (NONE SEEN) Urinalysis Comment None Urine Culture Reflexed Not indicated Urine Opiates Screen Positive Urine Methadone Screen Negative Urine Barbiturates Screen Negative Urine Amphetamines Screen Positive Urine Benzodiazepines Screen Negative Urine Cocaine Metabolite Screen Negative Urine Cannabinoids Screen Negative Red Blood Count 4.48mil/mm3 (4.40-5.80) Hemoglobin 12.7g/dL (13.8-17.2) Hematocrit 38.4% (41.0-50.0) Mean Corpuscular Volume 85.7fL (81-100) Mean Corpuscular Hemoglobin 28.3pg (27.0-35.0) Mean Corpuscular Hemoglobin Concent 33.1% (32.0-37.0) Red Cell Distribution Width 13.5% (12.3-15.4) Platelet Count 379bil/L (150-400) Neutrophils (%) (Auto) 73.9% (40-74) Lymphocytes (%) (Auto) 15.5% (14-46) Monocytes (%) (Auto) 8.1% (4-12) Eosinophils (%) (Auto) 1.5% (0-5) Basophils (%) (Auto) 0.4% (0-3) Total Bilirubin 0.6mg/dL (0.0-1.2) Aspartate Amino Transf (AST/SGOT) 15U/L (0-50) Alanine Aminotransferase (ALT/SGPT) 15U/L (0-44) Alkaline Phosphatase 77U/L (25-150) Total Protein 6.5g/dL (6.4-8.4) Albumin 3.7g/dL (3.4-5.0) Hepatitis C Comment . HIV (1&2) Ag and Ab, 4th Generation Non reactive (Non Reactive) Vancomycin Level Trough 13.4mcg/mL Test 11/13/16 06:13 White Blood Count 11.3th/mm3 (3.8-10.1) Erythrocyte Sedimentation Rate 29mm/hr (0-15) Sodium Level 140mEq/L (134-144) Potassium Level 4.5mEq/L (3.5-5.2) Chloride Level 105mEq/L (97-108) Carbon Dioxide Level 21mmol/L (18-29) Blood Urea Nitrogen 16mg/dL (6-20) Creatinine 0.68mg/dL (0.76-1.27) Estimat Glomerular Filtration Rate 143mL/min (>59) Glucose Level 116mg/dL (60-99) Calcium Level 8.7mg/dL (8.5-10.1) C-Reactive Protein 0.4mg/dL (0.0-0.5) Discharge Medications As needed Ibuprofen (Ibuprofen) 600 Mg Tablet 600 MG PO QID PRN PRN For Pain Prescribed by: YAEL GRIGSBY DO oxyCODONE-Acetaminophen 7.5-325 mg (oxyCODONE-Acetaminophen 7.5-325 mg) 1 Each Tablet 1 TAB PO Q4H PRN PRN For Pain Prescribed by: YAEL GRIGSBY DO Followup Plan Follow-up plan Pl f/u with Dr. Matos on 11/15/16 for dessing changes. Do not unwrap the dressing till then, we request the Dr. Matos address the Charcot Chula Tooth syndrome Please f/U at [facility] one more dose of dalbivancin 1.5 g to be given as outpatient here at [facility] on 11/18/16 Discharge Diet: No restrictions Discharge Activity: Limited until seen by PCP Patient Instructions The patient will be nonweightbearing on the left foot. A postsurgical shoe is ordered by Dr. Matos. Patient should follow up with Dr. Matos for possible referral to orthopedics for Charcot Chula Tooth as pt states he has this diagnosis Time spent Greater than 30 minutes was spent in preparation of discharge with greater than 50% of that time dedicated to patient counseling and coordination of care. Yael Grigsby DO Nov 13, 2016 11:29
[2016-11-14 10:07] LABS: Hepatitis A Antibody IgM Negative (Negative); Hepatitis B Core Antibody IgM Negative (Negative)
== END 2016-11-13 12:40 | disposition home or self-care (01) | DRG 504 ==
LOC: SED 07:10 → MOC 09:16
PROVIDERS: ADMIT Family Medicine; ATTEND Family Medicine
PROC: 0QBP0ZZ Excision of Left Metatarsal, Open Approach (ICD-10-PCS; 2016-11-10)
PROC: 0Y6Y0Z0 Detachment at Left 5th Toe, Complete, Open Approach (ICD-10-PCS; principal; 2016-11-10 12:30)
PROC: 0SBL0ZZ Excision of Left Tarsometatarsal Joint, Open Approach (ICD-10-PCS; 2016-11-12)
PROC: 0QBP0ZZ Excision of Left Metatarsal, Open Approach (ICD-10-PCS; 2016-11-12)
DX: M86.172 Other acute osteomyelitis, left ankle and foot (principal); L03.116 Cellulitis of left lower limb; L02.612 Cutaneous abscess of left foot; F55.8 Abuse of other non-psychoactive substances; F15.90 Other stimulant use, unspecified, uncomplicated; F11.90 Opioid use, unspecified, uncomplicated; F17.210 Nicotine dependence, cigarettes, uncomplicated; G60.0 Hereditary motor and sensory neuropathy; G47.00 Insomnia, unspecified

== ENCOUNTER 2016-11-18 15:51 | Emergency (ER) | payer OTHER ==
[~2016-11-18] VITALS: Ht 177.8 cm; Wt 77.3 kg
[~2016-11-18 15:51] MED LIST changes: -Dalbavancin Inj 1,500 MG in Dextrose 5% 500 ML IV ONE; -Dextrose 5% 100 ML ONE
[2016-11-18 15:59] VITALS: BP 119/87; PULSE 82; RESP 16; O2SAT 100
--- NOTE | 2016-11-18 16:13 | ED.REPORT ---
HPI-General Illness Date of Service Nov 18, 2016 ED Provider: Dr. Jj Herrera MD A 35 year old male with a history of recent osteomyelitis of the left foot, polysubstance abuse and muscular dystrophy presents to the ED with left foot pain that began this work. The patient recently had the infected bone and soft tissue resected from the affected cellulitic area of the left foot on 11/12. He was discharged on 11/13 in good condition with podiatry follow-up for wound care dressing changes and antibiotics. The patient did not go to [facility] today receive his dalbivancin 1.5 g treatment. He was also reportedly dropped from the [facility] as his primary care provider and was unable to fill his pain prescriptions. He denies any recent fever, chills, redness, swelling or warmth. Nursing Notes Stated Complaint: NEEDS MED REFILL Chief Complaint: General Complaint Nursing Notes Reviewed: Yes Allergies: Coded Allergies: No Known Allergies (Verified Allergy, Unknown, 11/18/16) Scheduled PRN Ibuprofen (Ibuprofen) 600 Mg Tablet 600 MG PO QID PRN PRN For Pain oxyCODONE-Acetaminophen 7.5-325 mg (oxyCODONE-Acetaminophen 7.5-325 mg) 1 Each Tablet 1 TAB PO Q4H PRN PRN For Pain General Time Seen by MD: 16:13 Chief Complaint Medication refill Hx Obtained From: Patient Arrived By: Walk-in Sudden in Onset?: No Symptom Duration: Since onset Quality: Painful Radiation: : Does not radiate Severity: Current: Mild Severity: Maximum: Mild Pertinent Negative: Pt denies other symptoms Recent Healthcare: No recent hospitalization, Recent doctor visit Past Medical History Past Medical History polysubstance abuse - methamphetamine ADHD Dqnavte-Tiwfo-Jivcz disease admitted 05/2013 for: Severe hyperthermia, Rhabdomyolysis, Community-acquired pneumonia, and Acute renal failure sepsis due to left lower extremity cellulitis - pt left hospital AMA Past Surgical History Reports: Appendectomy Smoking History Current Every Day Smoker Social History EtOH abuse Alcohol Use: Denies alcohol use Drug Use: Cocaine, IV drugs, Meth, THC, Other Other Social History: Local resident Occupation staying with [employer] till 04/06/2015 Ambulatory Status Independent Review of Systems Seeking medication refill Denies redness, swelling, or warmth Full Review of Systems Constitutional: Denies: Chills, Fever Musculoskeletal: Reports: Joint pain (toe pain) Complete sys rev & neg: except as marked. Physical Exam Vital Signs Vital Signs Date Time Temp Pulse Resp B/P Pulse Ox O2 Delivery O2 Flow Rate FiO2 11/18/16 15:59 36.7 82 16 119/87 100 Room Air Initial VS: Reviewed Extremities: Vascular intact, Neuro intact, No swelling, No tenderness Skin: Warm, Dry, No cyanosis Neurologic: Alert, Oriented, Nonfocal General/Constitutional: Awake, Alert, No acute distress Head / Eyes: Atraumatic, Normocephalic ENT: Atraumatic, Airway patent Neck: Atraumatic, Supple Respiratory / Chest: Atraumatic, No respiratory distress Cardiovascular: Peripheral circulation NL, Pulses = bilaterally Abdomen: Atraumatic, Soft Wrist / Hand: Neurologic intact, Vascular intact Foot in a boot upon examination. Psychiatric: Not suicidal, Not homicidal Abnormal Mood/Affect: Positive: Pressured speech Re-Eval/Medical Decision Med Decision/Clinical Course Patient received 1.5 tablets of oxycodone 5/325 and was sent directly to [facility] for his infusion of dalbavancin. Instructed to follow-up with the primary or [facility] regarding ongoing pain management. Time of Eval: 16:18 Patient Status: Condition improved Re-Evaluation/Progress Note: Patient is informed of the plan to refill medication and follow up with a PCP. Counseled Regarding: Diagnosis, Need for follow-up, When/why to return to ED Discharge & Departure Primary Impression: Medication refill Disposition: Home Discharge Condition All VS Reviewed: Yes Condition: Improved Additional Instructions: Thank you for trusting us with your care this afternoon. Your emergency department evaluation today is reassuring that there is no emergent cause for concern at this time. Take ibuprofen or Tylenol as directed for baseline pain. Follow up with the residency clinic or your [facility] for her dictation for breakthrough pain. Schedule a follow up appointment with your primary care physician in the next week for a recheck. Please return to the emergency department for any new or worsening conditions including any worsening pain, nausea, vomiting, fever, chills, redness, swelling , shortness of breath, chest pain, or any other concerning symptoms. Referrals: NOPCP (PCP) Jenny Horton MD Scribe Attestation Portions of this note were transcribed by Agustín Ayala. IDr. Jalen, personally performed the history, physical exam and medical decision-making; I reviewed and confirmed the accuracy of the information in the transcribed note. Signed by: Agustín Ayala, 11/18/16. Jj Anand DO Nov 18, 2016 16:13 AGUSTÍN AYALA Nov 18, 2016 16:24
[2016-11-18] MEDS ORDERED: Dalbavancin Inj 1,500 MG in Dextrose 5% 500 ML IV ONE (16:35)
[2016-11-18] MEDS ORDERED: oxyCODONE-Acetamin 5-325 mg Tablet PO ONE (16:45)
== END 2016-11-18 17:01 | disposition home or self-care (01) ==
LOC: SED 15:51
DX: Z76.0 Encounter for issue of repeat prescription (principal); F17.200 Nicotine dependence, unspecified, uncomplicated; G71.0 Muscular dystrophy; M86.8X7 Other osteomyelitis, ankle and foot; F19.10 Other psychoactive substance abuse, uncomplicated

== ENCOUNTER → 2016-11-18 | Day surgery (SDC) | payer OTHER ==
[~2016-11-18] VITALS: Ht 177.8 cm; Wt 77.3 kg
[~2016-11-18] MED LIST changes: -DOXY100C43 PO; -DULO60CA61 PO; +Dalbavancin Inj 1,500 MG in Dextrose 5% 500 ML IV ONE; +Dextrose 5% 100 ML ONE; +IBUP-1827 PO; -LITH300T2 PO; +OXYC-465 PO
[2016-11-18 17:55] VITALS: BP 119/59; PULSE 73; RESP 20; O2SAT 99
--- NOTE | 2016-11-18 18:20 | NUR ---
DALBAVANCIN INFUSION pt recently discharged (11/13) from [facility] for left toe cellulitis and osteomyelitis was seen in wound clinic this AM and arrives to [facility] directly following ED visit (for pain med refill) pain medication was provided in ED prior to discharge; however, pt voices concerns re: follow-up care and how to get additional pain medications to get him "through the weekend" until he is seen by MD on Monday. pt states effective pain relief at this time but c/o what he will feel like "two hours from now" without medication states Tylenol and ibuprofen have not helped suggested other methods such as foot elevation and decreased activity; however, pt continues to keep foot dependant and is weight-bearing during ambulation edu provided re: dalbavancin and PIV started to right forearm without difficulty IVAB infused over 30min, pt tolerated well, no adverse s/s line flushed with D5 as indicated prior to and after infusion PIV dcd with cath intact during infusion pt made multiple phone calls to residency clinic and podiatry clinic states plan of care is to be assessed at [facility] urgent care where MD may be able to coordinate care with primary provider to prescribe additional narcotic pain meds
== END | disposition home or self-care (01) ==
LOC: MOCO 00:22
PROVIDERS: ATTEND Internal Medicine Infectious Disease
DX: M86.172 Other acute osteomyelitis, left ankle and foot (principal); L03.116 Cellulitis of left lower limb; L02.612 Cutaneous abscess of left foot; Z89.422 Acquired absence of other left toe(s)
CPT/HCPCS: 96365; J0875; J7060